=== PATIENT | male | born 1995 | race Caucasian/White ===

== ENCOUNTER 2018-03-20 15:45 | Emergency (ER) | payer OTHER ==
[~2018-03-20] VITALS: Ht 182.9 cm; Wt 92.0 kg
[2018-03-20 15:48] VITALS: BP 142/90; PULSE 104; RESP 16; TEMP 99.1; O2SAT 97
[2018-03-20] MEDS ORDERED: FLOV50AE INH (15:53)
[2018-03-20] MEDS ORDERED: OMEP20TA93 PO (16:50)
[2018-03-20] MEDS ORDERED: SODIUM CHLOR 0.9% 1000 ML INJ 1,000 ML IV SCH (17:06)
[2018-03-20] MEDS ORDERED: SODIUM CHLORIDE 0.9% FLUSH 10 ML FLUSH IV FLUSH PRN (17:15)
--- NOTE | 2018-03-20 17:48 | PD ---
HPI Chief Complaint: Abdominal Pain Time Seen by Provider: 17:00 Travel History International Travel<30 days: No Contact w/Intl Traveler<30days: No Traveled to known affect area: No History of Present Illness HPI Patient is a 22-year-old male presenting to emergency department for evaluation of abdominal pain. Patient states it started a month ago, he describes it as cramping. He reports every time he eats he has diarrhea. He has had for episodes since noon today. He also reports nausea but no vomiting. He denies any fever or chills, shortness of breath, chest pain, headache, weak, fatigue. Past medical history significant for asthma. Patient presents with his mother. He describes the pain as cramping, mild in nature, 3-4 out of 10. FOR[facility]LY [facility] Past Medical History Asthma: Yes Social History Alcohol Use: No Tobacco Use: No Substance Use: No Allergies-Medications (Allergen,Severity, Reaction): Coded Allergies: No Known Allergies (Unverified , 03/20/18) Reported Meds & Prescriptions Reported Meds & Active Scripts Active Bactrim DS (Sulfamethoxazole-Trimethoprim) 800-160 Mg Tab 1 Tab PO BID Reported Omeprazole 20 Mg Tab 20 Mg PO DAILY Flovent Diskus Inh (Fluticasone Powder Inh) 50 Mcg/Blist Aerp Review of Systems Except as stated in HPI: all other systems reviewed are Neg Gastrointestinal: Positive: Nausea, Diarrhea, Abdominal Pain, Changes in Bowel Habits Physical Exam Narrative GENERAL: Well-developed, well-nourished, well-appearing male. Presenting to emerge department no acute distress. SKIN: Warm and dry. HEAD: Atraumatic. Normocephalic. EYES: Pupils equal and round. No scleral icterus. No injection or drainage. ENT: No nasal bleeding or discharge. Mucous membranes pink and moist. NECK: Trachea midline. No JVD. CARDIOVASCULAR: Regular rate and rhythm. RESPIRATORY: No accessory muscle use. Clear to auscultation. Breath sounds equal bilaterally. GASTROINTESTINAL: Abdomen soft, mildly tender diffusely, nondistended. Hepatic and splenic margins not palpable. Positive bowel sounds, no rebound, no guarding MUSCULOSKELETAL: Extremities without clubbing, cyanosis, or edema. No obvious deformities. NEUROLOGICAL: Awake and alert. No obvious cranial nerve deficits. Motor grossly within normal limits. Five out of 5 muscle strength in the arms and legs. Normal speech. PSYCHIATRIC: Appropriate mood and affect; insight and judgment normal. Data Data Last Documented VS Vital Signs Date Time Temp Pulse Resp B/P (MAP) Pulse Ox O2 Delivery O2 Flow Rate FiO2 03/20/18 19:12 03/20/18 18:19 99 19 99 Room Air 03/20/18 15:48 99.1 Orders Orders Complete Blood Count With Diff (03/20/18 17:06) Comprehensive Metabolic Panel (03/20/18 17:06) Lipase (03/20/18 17:06) Urinalysis - C+S If Indicated (03/20/18 17:06) Ct Abd/Pel W Iv Contrast(Rout) (03/20/18 17:06) Iv Access Insert/Monitor (03/20/18 17:06) Ecg Monitoring (03/20/18 17:06) Oximetry (03/20/18 17:06) NPO (03/20/18 17:06) Sodium Chlor 0.9% 1000 Ml Inj (Ns 1000 M (03/20/18 17:06) Sodium Chloride 0.9% Flush (Ns Flush) (03/20/18 17:15) Iohexol 350 Inj (Omnipaque 350 Inj) (03/20/18 17:56) Ed Discharge Order (03/20/18 19:06) Labs Laboratory Tests Test 03/20/18 17:17 03/20/18 17:50 03/20/18 18:27 Blood Urea Nitrogen 9 MG/DL Creatinine 0.93 MG/DL Random Glucose 86 MG/DL Total Protein 7.7 GM/DL Albumin 4.2 GM/DL Calcium Level 9.0 MG/DL Alkaline Phosphatase 81 U/L Aspartate Amino Transf (AST/SGOT) 65 U/L Alanine Aminotransferase (ALT/SGPT) 101 U/L Total Bilirubin 0.7 MG/DL Sodium Level 141 MEQ/L Potassium Level 4.5 MEQ/L Chloride Level 106 MEQ/L Carbon Dioxide Level 24.6 MEQ/L Anion Gap 10 MEQ/L Estimat Glomerular Filtration Rate 103 ML/MIN Lipase 91 U/L White Blood Count 10.2 TH/MM3 Red Blood Count 5.61 MIL/MM3 Hemoglobin 16.6 GM/DL Hematocrit 48.0 % Mean Corpuscular Volume 85.6 FL Mean Corpuscular Hemoglobin 29.6 PG Mean Corpuscular Hemoglobin Concent 34.5 % Red Cell Distribution Width 13.4 % Platelet Count 185 TH/MM3 Mean Platelet Volume 10.9 FL Neutrophils (%) (Auto) 70.1 % Lymphocytes (%) (Auto) 19.1 % Monocytes (%) (Auto) 8.8 % Eosinophils (%) (Auto) 1.7 % Basophils (%) (Auto) 0.3 % Neutrophils # (Auto) 7.1 TH/MM3 Lymphocytes # (Auto) 1.9 TH/MM3 Monocytes # (Auto) 0.9 TH/MM3 Eosinophils # (Auto) 0.2 TH/MM3 Basophils # (Auto) 0.0 TH/MM3 CBC Comment DIFF FINAL Differential Comment Urine Color YELLOW Urine Turbidity CLEAR Urine pH 7.0 Urine Specific [place] 1.048 Urine Protein NEG mg/dL Urine Glucose (UA) NEG mg/dL Urine Ketones 20 mg/dL Urine Occult Blood NEG Urine Nitrite NEG Urine Bilirubin NEG Urine Urobilinogen LESS THAN 2 mg/dL Urine Leukocyte Esterase NEG Urine RBC 1 /hpf Urine WBC 1 /hpf Urine Mucus FEW /lpf Microscopic Urinalysis Comment CULT NOT INDICATED MDM Medical Decision Making Medical Screen Exam Complete: Yes Emergency Medical Condition: Yes Interpretation(s) Last Impressions Abdomen/Pelvis CT 03/20/18 1706 Signed Impressions: CONCLUSION: 1. There is a changed appearance to the region of the cecum, with some mild in duration of the fat circumferentially about the cecum. This suggests possible i nflammatory process. Even though the appendix has a normal appearance, the ruby cecal inflammatory change does include the junction of the appendix and cecum.. Mildly prominent lymph nodes medial to the right colon are unchanged in size w hen compared to 03/07/2018. Laboratory Tests Test 03/20/18 17:17 03/20/18 17:50 03/20/18 18:27 Blood Urea Nitrogen 9 MG/DL Creatinine 0.93 MG/DL Random Glucose 86 MG/DL Total Protein 7.7 GM/DL Albumin 4.2 GM/DL Calcium Level 9.0 MG/DL Alkaline Phosphatase 81 U/L Aspartate Amino Transf (AST/SGOT) 65 U/L Alanine Aminotransferase (ALT/SGPT) 101 U/L Total Bilirubin 0.7 MG/DL Sodium Level 141 MEQ/L Potassium Level 4.5 MEQ/L Chloride Level 106 MEQ/L Carbon Dioxide Level 24.6 MEQ/L Anion Gap 10 MEQ/L Estimat Glomerular Filtration Rate 103 ML/MIN Lipase 91 U/L White Blood Count 10.2 TH/MM3 Red Blood Count 5.61 MIL/MM3 Hemoglobin 16.6 GM/DL Hematocrit 48.0 % Mean Corpuscular Volume 85.6 FL Mean Corpuscular Hemoglobin 29.6 PG Mean Corpuscular Hemoglobin Concent 34.5 % Red Cell Distribution Width 13.4 % Platelet Count 185 TH/MM3 Mean Platelet Volume 10.9 FL Neutrophils (%) (Auto) 70.1 % Lymphocytes (%) (Auto) 19.1 % Monocytes (%) (Auto) 8.8 % Eosinophils (%) (Auto) 1.7 % Basophils (%) (Auto) 0.3 % Neutrophils # (Auto) 7.1 TH/MM3 Lymphocytes # (Auto) 1.9 TH/MM3 Monocytes # (Auto) 0.9 TH/MM3 Eosinophils # (Auto) 0.2 TH/MM3 Basophils # (Auto) 0.0 TH/MM3 CBC Comment DIFF FINAL Differential Comment Urine Color YELLOW Urine Turbidity CLEAR Urine pH 7.0 Urine Specific [place] 1.048 Urine Protein NEG mg/dL Urine Glucose (UA) NEG mg/dL Urine Ketones 20 mg/dL Urine Occult Blood NEG Urine Nitrite NEG Urine Bilirubin NEG Urine Urobilinogen LESS THAN 2 mg/dL Urine Leukocyte Esterase NEG Urine RBC 1 /hpf Urine WBC 1 /hpf Urine Mucus FEW /lpf Microscopic Urinalysis Comment CULT NOT INDICATED Vital Signs Date Time Temp Pulse Resp B/P (MAP) Pulse Ox O2 Delivery O2 Flow Rate FiO2 03/20/18 15:48 99.1 104 16 142/90 (107) 97 Differential Diagnosis IBS versus cholecystitis versus appendicitis versus diverticulitis versus other Narrative Course Patient is a 22-year-old male that presented to the emergency department for evaluation of abdominal pain, diarrhea, nausea. Patient is well-appearing, on exam patient's abdomen is diffusely mildly tender. Labs and CT scan ordered and pending. Mother is at bedside. CBC with no acute findings chemistry with mildly elevated AST and AST 65/101, urinalysis with elevated specific gravity otherwise unremarkable. CT scan abdomen and pelvis shows a changed appearance the region of the cecum with some mild induration of the fat circumferentially around the cecum. This suggest possible inflammatory process. Even though the appendix is a normal appearance the pericecal inflammatory changes not included junction of the appendix and cecum. Mildly prominent lymph nodes medial right colon are unchanged in size compared to 03/07/2018. This report was read by the radiologist. My attending physician discussed findings with general surgery. Please see her documentation. Patient was advised to follow-up with surgeon next week. He will be put on Bactrim DS. They were given strict return precautions. Patient was encouraged to avoid concentrated sweets, maintain adequate fluid intake, maintain a bland, easy to digest diet. Patient mother verbalized understanding of instructions. Patient stable for discharge. Diagnosis Primary Impression: Abdominal pain Qualified Codes: R10.9 - Unspecified abdominal pain Referrals: Zen Jimenez MD 1 week Additional Instructions: Follow-up with Dr. Jimenez in 1 week Complete full course of antibiotics as prescribed Return to emergency department immediately for any new worsening symptoms Med/Other Pt SpecificInfo: Prescription(s) given Scripts Sulfamethoxazole-Trimethoprim (Bactrim DS) 800-160 Mg Tab 1 TAB PO BID for Infection, #20 TAB 0 Refills Prov: Radha Flores 03/20/18 Disposition: 01 DISCHARGE HOME Condition: Stable Radha Flores Mar 20, 2018 17:48
[2018-03-20] MEDS ORDERED: IOHEXOL 350 MG/ML 10 ML VIAL (for RAD DIAG) IVCONTRAST ONE (17:56)
[2018-03-20 17:59] LABS: ALKALINE PHOSPHATASE 81 U/L (45-117); ALT (GPT) 101 U/L (12-78); TOTAL BILIRUBIN ADULT 0.7 MG/DL (0.2-1.0); TOTAL PROTEIN 7.7 GM/DL (6.4-8.2)
[2018-03-20 18:09] LABS: ALBUMIN 4.2 GM/DL (3.4-5.0); AST (GOT) 65 U/L (15-37); BICARBONATE 24.6 MEQ/L (21.0-32.0); BLOOD UREA NITROGEN 9 MG/DL (7-18); CHLORIDE 106 MEQ/L (98-107); CREATININE 0.93 MG/DL (0.60-1.30); GLOMERULAR FILTRATION RATE 103 ML/MIN (>89); GLUCOSE,RANDOM 86 MG/DL (74-106); SODIUM (NA) 141 MEQ/L (136-145)
[2018-03-20 18:19] VITALS: BP 133/70; PULSE 99; RESP 19; O2SAT 99
[2018-03-20 18:27] LABS: AUTOMATED NEUTROPHIL # 7.1 TH/MM3 (1.8-7.7); BASOPHIL % 0.3 % (0.0-2.0); EOSINOPHIL # 0.2 TH/MM3 (0-0.4); EOSINOPHIL % 1.7 % (0.0-4.0); HEMOGLOBIN 16.6 GM/DL (13.0-17.0); LYMPH % 19.1 % (9.0-44.0); LYMPHOCYTE # 1.9 TH/MM3 (1.0-4.8); MEAN CELL VOLUME 85.6 FL (80.0-100.0); MEAN CORPUSCULAR HEMOGLOBIN 29.6 PG (27.0-34.0); MEAN CORPUSCULAR HGB CONC 34.5 % (32.0-36.0); MEAN PLATELET VOLUME 10.9 FL (7.0-11.0); MONO % 8.8 % (0.0-8.0); MONOCYTE # 0.9 TH/MM3 (0-0.9); NEUT % 70.1 % (16.0-70.0); PLATELET COUNT 185 TH/MM3 (150-450); RED BLOOD COUNT 5.61 MIL/MM3 (4.50-5.90); RED CELL DISTRIBUTION WIDTH 13.4 % (11.6-17.2); WHITE BLOOD COUNT 10.2 TH/MM3 (4.0-11.0)
--- NOTE | 2018-03-20 18:28 | RADRPT ---
EXAM DATE: 03/20/2018 6:03 PM EDT AGE/SEX: 22 years / Male INDICATIONS: Intermittent abdominal pain X 3 weeks. CLINICAL DATA: This is the patient's initial encounter. Patient reports that signs and symptoms have been present for 3 weeks and indicates a pain score of 6/10. MEDICAL/SURGICAL HISTORY: Asthma. None. ORAL CONTRAST: No oral contrast ingested. RADIATION DOSE: 9.37 CTDI (mGy) COMPARISON: [facility], CT ABDOMEN AND PELVIS W AND W/O CONTRAST, 03/07/2018. . TECHNIQUE: Multiple contiguous axial images were obtained through the abdomen and pelvis following b olus infusion of 96 ml Omnipaque 350 (iohexol) nonionic water-soluble contrast as a single exam dos e. No oral contrast ingested. Using automated exposure control and adjustment of the mA and/or kV ac cording to patient size, the radiation dose was kept as low as reasonably achievable to obtain optima l diagnostic quality images. FINDINGS: Lower Lungs: The visualized lower lungs are clear. Liver: The liver has a homogeneous density without space-occupying lesion. There is no dilation of th e biliary tree. Spleen: Homogeneous density without enlargement. Pancreas: Unremarkable without mass or calcification. Kidneys: Normal in size and shape. No evidence of mass or hydronephrosis. Adrenal Glands: Unremarkable. Aorta: The aorta and proximal iliac vessels are grossly unremarkable without aneurysmal dilation. Bowel/Mesentery: There is some mild induration of the fat circumferentially about the cecum; this is a new finding when compared to prior. No free fluid. The appendix is identified inferior and lateral to the cecum, is normal in size, and is stable in appearance. There are several mesenteric nodes med ial to the right colon which measure up to 1.2 cm in size; these nodes are unchanged in size when com pared to prior CT. No dilated loops of small or large bowel. Abdominal Wall: Intact. Retroperitoneum: No evidence of adenopathy in the retrocrural, para-aortic, or deep pelvic regions. Bladder: Contours are smooth. Reproductive Organs: No abnormal masses or calcifications seen. Inguinal: The inguinal region is unremarkable without evidence of adenopathy. Bony Structures: Unremarkable. CONCLUSION: 1. There is a changed appearance to the region of the cecum, with some mild induration of the fat ci rcumferentially about the cecum. This suggests possible inflammatory process. Even though the appendi x has a normal appearance, the pericecal inflammatory change does include the junction of the appendi x and cecum.. Mildly prominent lymph nodes medial to the right colon are unchanged in size when liset red to 03/07/2018. Electronically signed by: Asif Dunne MD 03/20/2018 6:26 PM EDT
[2018-03-20 19:06] LABS: BILIRUBIN, URINE NEG (NEG); BLOOD, URINE NEG (NEG); GLUCOSE,URINE NEG (NEG); KETONE, URINE 20 mg/dL (NEG); MUCUS URINE FEW /lpf (OCC); NITRITE,URINE NEG (NEG); URINE COLOR YELLOW (YELLW/STRAW); URINE LEUKOCYTE ESTERASE NEG (NEG)
--- NOTE | 2018-03-20 19:06 | PD ---
Physical Exam Date Seen by Provider: Mar 20, 2018 Time Seen by Provider: 18:00 Narrative I, Dr. Lu, have reviewed the advance practice practitioner's documentation and am in agreement, met with the patient face to face, made the diagnosis, and the medical decision making was done by me. *My assessment and Findings: Patient seen and evaluated with PA, please see PA notes for further details. He is coming in with diffuse abdominal pains, nausea , intermittent diarrhea, sent in by urgent care. He was initially mildly tender to palpation diffusely, mostly in the epigastrium and right side, and lab work and CAT scan was ordered. Laboratory Tests Test 03/20/18 17:17 03/20/18 17:50 03/20/18 18:27 Aspartate Amino Transf (AST/SGOT) 65 U/L (15-37) Alanine Aminotransferase (ALT/SGPT) 101 U/L (12-78) Neutrophils (%) (Auto) 70.1 % (16.0-70.0) Monocytes (%) (Auto) 8.8 % (0.0-8.0) Last 24 hours Impressions Abdomen/Pelvis CT 03/20/18 1706 Signed Impressions: CONCLUSION: 1. There is a changed appearance to the region of the cecum, with some mild in duration of the fat circumferentially about the cecum. This suggests possible i nflammatory process. Even though the appendix has a normal appearance, the ruby cecal inflammatory change does include the junction of the appendix and cecum.. Mildly prominent lymph nodes medial to the right colon are unchanged in size w hen compared to 03/07/2018. Considering the finding, the case was briefly discussed with Dr. Jimenez who does not think that the symptoms and the findings are consistent with appendicitis. However, patient can be given antibiotics and followed up fairly closely, depending on how he is looking, can also be admitted as an observation. In the ER, patient has not had any vomiting episodes, appears to be doing well, vital signs are stable, and no significant leukocytosis although symptoms have been going on for several weeks, and I think that this is less likely to be an appendicitis. There is some signs of inflammation around the cecum and there could be some mesenteric adenitis in this area. Dr. Jimenez had suggested trying antibiotics. At this point, my plan would be to release the patient, return for worsening in symptoms. The plan was discussed with patient and mom and they state understanding. Data Data Last Documented VS Vital Signs Date Time Temp Pulse Resp B/P (MAP) Pulse Ox O2 Delivery O2 Flow Rate FiO2 03/20/18 18:19 99 19 133/70 (91) 99 Room Air 03/20/18 15:48 99.1 Orders Orders Complete Blood Count With Diff (03/20/18 17:06) Comprehensive Metabolic Panel (03/20/18 17:06) Lipase (03/20/18 17:06) Urinalysis - C+S If Indicated (03/20/18 17:06) Ct Abd/Pel W Iv Contrast(Rout) (03/20/18 17:06) Iv Access Insert/Monitor (03/20/18 17:06) Ecg Monitoring (03/20/18 17:06) Oximetry (03/20/18 17:06) NPO (03/20/18 17:06) Sodium Chlor 0.9% 1000 Ml Inj (Ns 1000 M (03/20/18 17:06) Sodium Chloride 0.9% Flush (Ns Flush) (03/20/18 17:15) Iohexol 350 Inj (Omnipaque 350 Inj) (03/20/18 17:56) Labs Laboratory Tests Test 03/20/18 17:17 03/20/18 17:50 03/20/18 18:27 Blood Urea Nitrogen 9 MG/DL Creatinine 0.93 MG/DL Random Glucose 86 MG/DL Total Protein 7.7 GM/DL Albumin 4.2 GM/DL Calcium Level 9.0 MG/DL Alkaline Phosphatase 81 U/L Aspartate Amino Transf (AST/SGOT) 65 U/L Alanine Aminotransferase (ALT/SGPT) 101 U/L Total Bilirubin 0.7 MG/DL Sodium Level 141 MEQ/L Potassium Level 4.5 MEQ/L Chloride Level 106 MEQ/L Carbon Dioxide Level 24.6 MEQ/L Anion Gap 10 MEQ/L Estimat Glomerular Filtration Rate 103 ML/MIN Lipase 91 U/L White Blood Count 10.2 TH/MM3 Red Blood Count 5.61 MIL/MM3 Hemoglobin 16.6 GM/DL Hematocrit 48.0 % Mean Corpuscular Volume 85.6 FL Mean Corpuscular Hemoglobin 29.6 PG Mean Corpuscular Hemoglobin Concent 34.5 % Red Cell Distribution Width 13.4 % Platelet Count 185 TH/MM3 Mean Platelet Volume 10.9 FL Neutrophils (%) (Auto) 70.1 % Lymphocytes (%) (Auto) 19.1 % Monocytes (%) (Auto) 8.8 % Eosinophils (%) (Auto) 1.7 % Basophils (%) (Auto) 0.3 % Neutrophils # (Auto) 7.1 TH/MM3 Lymphocytes # (Auto) 1.9 TH/MM3 Monocytes # (Auto) 0.9 TH/MM3 Eosinophils # (Auto) 0.2 TH/MM3 Basophils # (Auto) 0.0 TH/MM3 CBC Comment DIFF FINAL Differential Comment MDM Medical Record Reviewed: Yes Supervised Visit with NICOLASA: Yes Diagnosis Primary Impression: Abdominal pain Referrals: Zen Jimenez MD Disposition: 01 DISCHARGE HOME Condition: Stable Ponce Lu MD Mar 20, 2018 19:06
[2018-03-20] MEDS ORDERED: BACT800T5 PO (19:20)
== END 2018-03-20 19:13 | disposition home or self-care (01) ==
LOC: NEPE 15:45
DX: R10.9 Unspecified abdominal pain (principal); R11.0 Nausea; R19.7 Diarrhea, unspecified; J45.909 Unspecified asthma, uncomplicated
CPT/HCPCS: 74177; 80053; 81001; 83690; 85025; 96360; 99284; J7030; Q9967

== ENCOUNTER 2018-03-24 07:51 | Inpatient (IN) | payer OTHER ==
[~2018-03-24] VITALS: Ht 185.4 cm; Wt 94.6 kg
[~2018-03-24 07:51] MED LIST: BACT800T5 PO; FLOV50AE INH; OMEP20TA93 PO
[2018-03-24 07:57] VITALS: BP 142/78; PULSE 119; RESP 24; TEMP 97.9; O2SAT 99
[2018-03-24 08:15] VITALS: BP 134/89; PULSE 122; RESP 18; TEMP 98.5; O2SAT 98
[2018-03-24] MEDS ORDERED: SODIUM CHLOR 0.9% 1000 ML INJ 1,000 ML IV SCH (08:20)
[2018-03-24] MEDS ORDERED: PROCHLORPERAZINE INJ 10 MG/2 ML VIAL IV PUSH ONE (08:30)
[2018-03-24] MEDS ORDERED: diphenhydrAMINE HCL 50 MG/ML VIAL IV PUSH ONE (08:30)
[2018-03-24] MEDS ORDERED: SODIUM CHLOR 0.9% 1000 ML INJ 1,000 ML IV ONE ×3 (08:30→10:15)
[2018-03-24 08:41] LABS: AUTOMATED NEUTROPHIL # 11.9 TH/MM3 (1.8-7.7); BASOPHIL # 0.1 TH/MM3 (0-0.2); BASOPHIL % 0.3 % (0.0-2.0); EOSINOPHIL # 0.2 TH/MM3 (0-0.4); EOSINOPHIL % 1.5 % (0.0-4.0); HEMATOCRIT 57.1 % (39.0-51.0); HEMOGLOBIN 19.6 GM/DL (13.0-17.0); LYMPH % 12.6 % (9.0-44.0); MEAN CELL VOLUME 86.2 FL (80.0-100.0); MEAN CORPUSCULAR HEMOGLOBIN 29.6 PG (27.0-34.0); MEAN CORPUSCULAR HGB CONC 34.4 % (32.0-36.0); MEAN PLATELET VOLUME 10.8 FL (7.0-11.0); MONO % 11.5 % (0.0-8.0); MONOCYTE # 1.9 TH/MM3 (0-0.9); NEUT % 74.1 % (16.0-70.0); PLATELET COUNT 237 TH/MM3 (150-450); RED BLOOD COUNT 6.63 MIL/MM3 (4.50-5.90); RED CELL DISTRIBUTION WIDTH 13.6 % (11.6-17.2); WHITE BLOOD COUNT 16.1 TH/MM3 (4.0-11.0)
[2018-03-24 09:00] LABS: ALKALINE PHOSPHATASE 66 U/L (45-117); TOTAL BILIRUBIN ADULT 0.7 MG/DL (0.2-1.0); TOTAL PROTEIN 7.1 GM/DL (6.4-8.2)
[2018-03-24 09:18] LABS: ALBUMIN 3.7 GM/DL (3.4-5.0); ALT (GPT) 54 U/L (12-78); AST (GOT) 34 U/L (15-37); BICARBONATE 20.3 MEQ/L (21.0-32.0); BLOOD UREA NITROGEN 10 MG/DL (7-18); CALCIUM 8.7 MG/DL (8.5-10.1); CHLORIDE 102 MEQ/L (98-107); CREATININE 1.15 MG/DL (0.60-1.30); GLOMERULAR FILTRATION RATE 80 ML/MIN (>89); GLUCOSE,RANDOM 95 MG/DL (74-106); SODIUM (NA) 137 MEQ/L (136-145)
--- NOTE | 2018-03-24 09:28 | PD ---
HPI . Abdominal pain Chief Complaint: GI Complaint Time Seen by Provider: 08:18 Travel History International Travel<30 days: No Contact w/Intl Traveler<30days: No Traveled to known affect area: No History of Present Illness HPI Patient presents with a chief complaint of abdominal pain associated with very frequent diarrhea. He told me that it started a week ago. However, when I reviewed his records, he was seen here on 03/20 and stated at that time that the pain had been present for several weeks. Nonetheless, his symptoms have gotten progressively worse since his most recent visit here. He is complaining with diarrhea that occurs about every 15 minutes. It is watery. He has had some occasional vomiting but the vomiting is nothing compared to the diarrhea. His abdominal pain is in the lower abdomen and is crampy in nature. It is rated 10/ 10. It has been getting progressively worse. He has had no known sick contacts and has not been running a fever. He does admit to decreased urinary output. This patient was seen initially by his primary care provider on about 03/02. The primary care provider did blood work and a CT. The results of the studies were apparently negative. The primary care provider treated him with Cipro and Flagyl. He has finished both of those medications. His symptoms were worsening so he presented to an urgent care center. The urgent care center sent him here. That was on 03/20. He had blood work, urinalysis and a CT of the abdomen and pelvis. Pertinent findings were normal white blood count, normal electrolytes, mildly elevated AST/ALT and inflammatory changes around the cecum. A telephone consultation with surgery was obtained. The surgeon did not feel that the patient's presentation was compatible with appendicitis. He suggested discharged with antibiotics and follow-up with him. That follow- up is scheduled to take place this afternoon. However, his symptoms have become acutely worse over the last 12 hours. He subsequently presents back to us. REPLACED BY [facility] Past Medical History Asthma: Yes Diabetes: No Diminished Hearing: No Respiratory: Yes (ASTHMA) Influenza Vaccination: No Past Surgical History Ear Surgery: Yes (TUBES IN EARS INFANT) Social History Alcohol Use: No Tobacco Use: No Substance Use: No Allergies-Medications (Allergen,Severity, Reaction): Coded Allergies: No Known Allergies (Unverified , 03/24/18) Reported Meds & Prescriptions Reported Meds & Active Scripts Active Bactrim DS (Sulfamethoxazole-Trimethoprim) 800-160 Mg Tab 1 Tab PO BID Reported Flovent Diskus Inh (Fluticasone Powder Inh) 50 Mcg/Blist Aerp Review of Systems Except as stated in HPI: all other systems reviewed are Neg General / Constitutional: No: Fever, Chills HENT: Positive: Other (Dry mouth) Cardiovascular: No: Chest Pain or Discomfort Respiratory: No: Shortness of Breath Gastrointestinal: Positive: Nausea, Vomiting, Diarrhea, Abdominal Pain Genitourinary: Positive: Decreased Urinary Output Physical Exam Narrative Vital Signs Date Time Temp Pulse Resp B/P (MAP) Pulse Ox O2 Delivery O2 Flow Rate FiO2 03/24/18 08:15 98.5 122 18 134/89 (104) 98 Room Air 03/24/18 07:57 97.9 119 24 142/78 (99) 99 Room Air GENERAL: Healthy-appearing young man. SKIN: warm/dry. HEAD: Normocephalic. Atraumatic. EYES: Pupils equal and round. Extraocular movements are intact. ENT: Mucous membranes pink but dry. NECK: Supple. Full range of motion without pain.. CARDIOVASCULAR: Regular rate and rhythm. Sinus tachycardia. RESPIRATORY: No accessory muscle use. Clear to auscultation. Breath sounds equal bilaterally. GASTROINTESTINAL: Abdomen soft. Diffusely tender. Bowel sounds present. Nondistended. MUSCULOSKELETAL: No obvious deformities. Normal muscle tone. NEUROLOGICAL: Awake and alert. No obvious cranial nerve deficits. Motor grossly within normal limits. Normal speech. PSYCHIATRIC: Appropriate mood and affect; insight and judgment normal. Data Data Last Documented VS Vital Signs Date Time Temp Pulse Resp B/P (MAP) Pulse Ox O2 Delivery O2 Flow Rate FiO2 03/24/18 10:17 121 18 144/85 (104) 99 Room Air 03/24/18 08:15 98.5 Orders Orders Complete Blood Count With Diff (03/24/18 08:20) Comprehensive Metabolic Panel (03/24/18 08:20) Lipase (03/24/18 08:20) Urinalysis - C+S If Indicated (03/24/18 08:20) Iv Access Insert/Monitor (03/24/18 08:20) Sodium Chlor 0.9% 1000 Ml Inj (Ns 1000 M (03/24/18 08:20) Sodium Chloride 0.9% Flush (Ns Flush) (03/24/18 08:30) Diphenhydramine Inj (Benadryl Inj) (03/24/18 08:30) Prochlorperazine Inj (Compazine Inj) (03/24/18 08:30) Sodium Chlor 0.9% 1000 Ml Inj (Ns 1000 M (03/24/18 08:30) C Diff Toxin Pcr (03/24/18 08:32) Enteric Path (Stool) (03/24/18 08:52) Ct Abd/Pel W Iv Contrast(Rout) (03/24/18 10:06) Morphine Inj (Morphine Inj) (03/24/18 10:15) Sodium Chlor 0.9% 1000 Ml Inj (Ns 1000 M (03/24/18 10:15) Sodium Chlor 0.9% 1000 Ml Inj (Ns 1000 M (03/24/18 10:15) Vancomycin For Oral Use Only (Vancomycin (03/24/18 13:00) Isolation 08,20 (03/24/18 11:09) Equip, Isolation Cart (03/24/18 11:09) Ondansetron Odt (Zofran Odt) (03/24/18 11:15) Admit Order (Ed Use Only) (03/24/18 ) Vital Signs (Adult) Q4H (03/24/18 12:15) Diet Npo (03/24/18 Lunch) Activity Oob With Assistance (03/24/18 12:15) Notify Dr: Other (03/24/18 12:15) Labs Laboratory Tests Test 03/24/18 08:29 03/24/18 09:25 White Blood Count 16.1 TH/MM3 Red Blood Count 6.63 MIL/MM3 Hemoglobin 19.6 GM/DL Hematocrit 57.1 % Mean Corpuscular Volume 86.2 FL Mean Corpuscular Hemoglobin 29.6 PG Mean Corpuscular Hemoglobin Concent 34.4 % Red Cell Distribution Width 13.6 % Platelet Count 237 TH/MM3 Mean Platelet Volume 10.8 FL Neutrophils (%) (Auto) 74.1 % Lymphocytes (%) (Auto) 12.6 % Monocytes (%) (Auto) 11.5 % Eosinophils (%) (Auto) 1.5 % Basophils (%) (Auto) 0.3 % Neutrophils # (Auto) 11.9 TH/MM3 Lymphocytes # (Auto) 2.0 TH/MM3 Monocytes # (Auto) 1.9 TH/MM3 Eosinophils # (Auto) 0.2 TH/MM3 Basophils # (Auto) 0.1 TH/MM3 CBC Comment DIFF FINAL Differential Comment Blood Urea Nitrogen 10 MG/DL Creatinine 1.15 MG/DL Random Glucose 95 MG/DL Total Protein 7.1 GM/DL Albumin 3.7 GM/DL Calcium Level 8.7 MG/DL Alkaline Phosphatase 66 U/L Aspartate Amino Transf (AST/SGOT) 34 U/L Alanine Aminotransferase (ALT/SGPT) 54 U/L Total Bilirubin 0.7 MG/DL Sodium Level 137 MEQ/L Potassium Level 4.1 MEQ/L Chloride Level 102 MEQ/L Carbon Dioxide Level 20.3 MEQ/L Anion Gap 15 MEQ/L Estimat Glomerular Filtration Rate 80 ML/MIN Lipase 55 U/L Urine Color YELLOW Urine Turbidity HAZY Urine pH 5.0 Urine Specific [place] 1.023 Urine Protein 30 mg/dL Urine Glucose (UA) NEG mg/dL Urine Ketones 80 OR GREATER mg/dL Urine Occult Blood NEG Urine Nitrite NEG Urine Bilirubin NEG Urine Urobilinogen LESS THAN 2 mg/dL Urine Leukocyte Esterase NEG Urine RBC LESS THAN 1 /hpf Urine WBC 1 /hpf Urine Squamous Epithelial Cells 1 /hpf Urine Mucus FEW /lpf Microscopic Urinalysis Comment CULT NOT INDICATED Stool C. difficile Toxin (PCR) POSITIVE Stl C. difficile Toxin Epiderm 027 PRESUMPTIVE NEGATIVE MDM Medical Decision Making Medical Screen Exam Complete: Yes Emergency Medical Condition: Yes Medical Record Reviewed: Yes (see HPI for review of records) Differential Diagnosis Differential diagnosis of abdominal pain includes but is not limited to gastritis, pancreatitis, hepatitis, gastroenteritis, constipation, urinary retention, peptic ulcer disease, diverticulitis or appendicitis Narrative Course This is a young, relatively healthy man who has had abdominal pain and diarrhea for at least 3 weeks now. He has been treated initially with Cipro and Flagyl and now with Septra but his symptoms are getting worse rather than better. He has had 2 previous [address]s. The most recent CT on 03/20 showed inflammatory changes around the cecum. I will fluid resuscitate him. I am repeating his labs. Stool culture and C. difficile are pending. I am reluctant to do a third CT in this young man. However, if he has a leukocytosis, I feel that he needs one. CBC & BMP Diagram 03/24/18 08:29 Total Protein 7.1 #, Albumin 3.7, Calcium Level 8.7, Alkaline Phosphatase 66, Aspartate Amino Transf (AST/SGOT) 34, Alanine Aminotransferase (ALT/SGPT) 54, Total Bilirubin 0.[address] of his abdomen and pelvis. I will also give him an additional 2 L of fluid. He is hemoconcentrated. UA>>SG 1.023, + protein, + ketones C Diff + This patient has been previously treated with Flagyl in the recent past. Therefore, I have ordered oral vancomycin. Last Impressions Abdomen/Pelvis CT 03/24/18 1006 Signed Impressions: CONCLUSION: Colitis being most prominent at the ascending colon. When compared to the prior exam, this finding has progressed. This is a patient who has failed outpatient management. He is getting worse rather than better. He will be admitted to the hospital. Physician Communication Physician Communication Dr. Hay Diagnosis Primary Impression: Abdominal pain Qualified Codes: R10.30 - Lower abdominal pain, unspecified Additional Impressions: Diarrhea Qualified Codes: R19.7 - Diarrhea, unspecified Colitis due to Clostridium difficile Admitting Information Admitting Physician Requests: Admit Condition: Stable Mariana Foster MD Mar 24, 2018 09:28
[2018-03-24] MEDS ORDERED: MORPHINE SULFATE 4 MG/ML INJ IV PUSH ONE (10:15)
[2018-03-24 10:17] VITALS: BP 144/85; PULSE 121; RESP 18; O2SAT 99
[2018-03-24 10:21] LABS: BILIRUBIN, URINE NEG (NEG); BLOOD, URINE NEG (NEG); GLUCOSE,URINE NEG (NEG); KETONE, URINE 80 OR GREATER mg/dL (NEG); MUCUS URINE FEW /lpf (OCC); NITRITE,URINE NEG (NEG); SQUAMOUS EPITHELIAL CELL URINE 1 /hpf (0-5); URINE COLOR YELLOW (YELLW/STRAW); URINE LEUKOCYTE ESTERASE NEG (NEG)
[2018-03-24] MEDS ORDERED: IOHEXOL 350 MG/ML 10 ML VIAL (for RAD DIAG) IVCONTRAST ONE (10:33)
[2018-03-24] MEDS ORDERED: ONDANSETRON ODT 4 MG TAB PO ONE (11:15)
--- NOTE | 2018-03-24 11:31 | RADRPT ---
EXAM DATE: 03/24/2018 11:01 AM EDT AGE/SEX: 22 years / Male INDICATIONS: abdominal pain, nausea, vomiting, diarrhea 1 week CLINICAL DATA: This is the patient's initial encounter. Patient reports that signs and symptoms have been present for 1 week and indicates a pain score of 10/10. MEDICAL/SURGICAL HISTORY: . . ORAL CONTRAST: No oral contrast ingested. RADIATION DOSE: 10.45 CTDI (mGy) COMPARISON: [facility] [place] ABDOMEN & PELVIS W CONTRAST, 03/20/2018. . TECHNIQUE: Multiple contiguous axial images were obtained through the abdomen and pelvis following b olus infusion of 96ML ml Omnipaque 350 (iohexol) nonionic water-soluble contrast as a single exam d ose. No oral contrast ingested. Using automated exposure control and adjustment of the mA and/or kV according to patient size, radiation dose was kept as low as reasonably achievable to obtain optimal diagnostic quality images. DICOM format image data is available electronically for review and compar candido. FINDINGS: Lower Lungs: The visualized lower lungs are clear. Liver: The liver has a homogeneous density without space-occupying lesion. There is no dilation of th e biliary tree. Spleen: Homogeneous density without enlargement. Pancreas: Unremarkable without mass or calcification. Kidneys: Normal in size and shape. No evidence of mass or hydronephrosis. Adrenal Glands: Unremarkable. Aorta: The aorta and proximal iliac vessels are grossly unremarkable without aneurysmal dilation. Bowel/Mesentery: The colon appears thickened throughout. The ascending colon appears most probably a ffected. There is surrounding inflammatory change around the ascending colon. The appendix and termin al ileum appear normal. There are lymph nodes in the right lower quadrant mesentery. These appear mo re prominent on the current exam. Abdominal Wall: Intact. Retroperitoneum: No evidence of adenopathy in the retrocrural, para-aortic, or deep pelvic regions. Bladder: Contours are smooth. Reproductive Organs: No abnormal masses or calcifications seen. Inguinal: The inguinal region is unremarkable without evidence of adenopathy. Bony Structures: Unremarkable. CONCLUSION: Colitis being most prominent at the ascending colon. When compared to the prior exam, this finding iglesias s progressed. Electronically signed by: Manolo Flores MD 03/24/2018 11:29 AM EDT
[2018-03-24] MEDS: VANCOMYCIN 500 MG VIAL (FOR ORAL USE ONLY) PO SCH ×3 (11:50→22:18)
[2018-03-24] MEDS: SODIUM CHLOR 0.9% 1000 ML INJ 1,000 ML IV SCH ×3 (13:48→23:43)
--- NOTE | 2018-03-24 14:22 | HHI.HP ---
[facility] Service [facility] Primary Care Physician Toan Briggs M.D. Admission Diagnosis c diff colitis, dehydration Diagnoses: (1) Colitis due to Clostridium difficile Diagnosis: Principal Chief Complaint: abdominal pain Travel History International Travel<30 Days: No Contact w/Intl Traveler <30 Da: No Traveled to Known Affected Are: No History of Present Illness patient is a 22 y/o male with history of asthma who presented to ER with abdominal pain and diarrhea. he says that he's had abdominal pain and diarrhea for about three weeks. the pain was periumbilical and colicky in nature. he says that he was prescribed Cipro and Flagyl by his pcp three weeks ago but the symptoms didn't improve. he then was seen at urgent care and he was referred to ER. after the case was d/w general surgery , he was discharged home on bactrim. he says that the pain and diarrhea got worse to the extent that he decided to come back to ER. he denies any fever or chills but had some nausea and emesis last night.he doesn't report taking any antibiotics prior to three weeks ago when the symptoms started. he doesn't recall any similar symptoms in the past. he says that he hasn't been able to eat or drink as much over the past few days and he's probably lost some weight. Review of Systems Constitutional: COMPLAINS OF: Weight loss, DENIES: Fever, Chills, Night Sweats Eyes: DENIES: Blurred vision, Diplopia, Vision loss, Double Vision Ears, nose, mouth, throat: DENIES: Tinnitus, Vertigo, Throat pain, Epistaxis Respiratory: DENIES: Apneas, Cough, Snoring, Wheezing, Hemoptysis, Sputum production, Shortness of breath Cardiovascular: DENIES: Chest pain, Palpitations, Syncope, Dyspnea on Exertion , PND, Lower Extremity Edema, Orthopnea, Claudication Gastrointestinal: COMPLAINS OF: Abdominal pain, Diarrhea, Nausea, Vomiting, DENIES: Black stools, Bloody stools, Constipation, Difficulty Swallowing, Anorexia Genitourinary: DENIES: Urinary frequency, Urgency, Hematuria, Dysuria Musculoskeletal: DENIES: Joint pain, Muscle aches, Stiffness, Joint Swelling Integumentary: DENIES: Rash Neurologic: DENIES: Abnormal gait, Headache, Localized weakness, Paresthesias, Seizures, Speech Problems, Tremor, Poor Balance Psychiatric: DENIES: Anxiety, Confusion, Mood changes, Depression, Hallucinations, Agitation, Suicidal Ideation, Homicidal Ideation, Delusions Past Family Social History Past Medical History asthma. Past Surgical History era surgery. Reported Medications Flovent Diskus Inh (Fluticasone Powder Inh) 50 Mcg/Blist Aerp Allergies: Coded Allergies: No Known Allergies (Unverified , 03/24/18) Active Ordered Medications Inpatient Medications Diphenhydramine HCl (Benadryl Inj) 25 mg ONCE ONCE IV PUSH Last administered on 03/24/18at 08:35; Start 03/24/18 at 08:30; Stop 03/24/18 at 08:31; Status DC Morphine Sulfate (Morphine Inj) 2 mg Q4H PRN IV PUSH PAIN 1-10; Start 03/24/18 at 12:45 Ondansetron HCl (Zofran Odt) 4 mg ONCE ONCE PO Last administered on at 11:18; Start 03/24/18 at 11:15; Stop 03/24/18 at 11:16; Status DC Prochlorperazine Edisylate (Compazine Inj) 10 mg ONCE ONCE IV PUSH Last administered on 03/24/18at 08:35; Start 03/24/18 at 08:30; Stop 03/24/18 at 08:31 ; Status DC Sodium Chloride 1,000 ml @ 125 mls/hr Q8H IV Last administered on 03/24/18at 13 :48; Start 03/24/18 at 12:45 Sodium Chloride (NS Flush) 2 ml UNSCH PRN IV FLUSH FLUSH AFTER USING IV ACCESS ; Start 03/24/18 at 08:30 Vancomycin HCl (VANCOMYCIN for oral use only) 250 mg QID PO Last administered on 03/24/18at 11:50; Start 03/24/18 at 13:00 Family History not related to this admission. Social History doesn't smoke. drinks occasionally. Physical Exam Vital Signs Vital Signs Date Time Temp Pulse Resp B/P (MAP) Pulse Ox O2 Delivery O2 Flow Rate FiO2 6/21/18 10:17 121 18 144/85 (104) 99 Room Air 03/24/18 08:15 98.5 122 18 134/89 (104) 98 Room Air 03/24/18 07:57 97.9 119 24 142/78 (99) 99 Room Air Physical Exam GENERAL: This is a well-nourished, well-developed patient, in no apparent distress. SKIN: No rashes, ecchymoses or lesions. Cool and dry. HEAD: Atraumatic. Normocephalic. No temporal or scalp tenderness. EYES: Pupils equal round and reactive. Extraocular motions intact. No scleral icterus. No injection or drainage. ENT: Nose without bleeding, purulent drainage or septal hematoma. Throat without erythema, tonsillar hypertrophy or exudate. Uvula midline. Airway patent. NECK: Trachea midline. No JVD or lymphadenopathy. Supple, nontender, no meningeal signs. CARDIOVASCULAR: Regular rate and rhythm without murmurs, gallops, or rubs. RESPIRATORY: Clear to auscultation. Breath sounds equal bilaterally. No wheezes , rales, or rhonchi. GASTROINTESTINAL: Abdomen soft, non-tender, nondistended. No hepato-splenomegaly , or palpable masses. No guarding. MUSCULOSKELETAL: Extremities without clubbing, cyanosis, or edema. No joint tenderness, effusion, or edema noted. No calf tenderness. Negative Homans sign bilaterally. NEUROLOGICAL: Awake and alert. Cranial nerves II through XII intact. Motor and sensory grossly within normal limits. Five out of 5 muscle strength in all muscle groups. Normal speech. Laboratory Laboratory Tests Test 03/24/18 08:29 03/24/18 09:25 White Blood Count 16.1 Red Blood Count 6.63 Hemoglobin 19.6 Hematocrit 57.1 Mean Corpuscular Volume 86.2 Mean Corpuscular Hemoglobin 29.6 Mean Corpuscular Hemoglobin Concent 34.4 Red Cell Distribution Width 13.6 Platelet Count 237 Mean Platelet Volume 10.8 Neutrophils (%) (Auto) 74.1 Lymphocytes (%) (Auto) 12.6 Monocytes (%) (Auto) 11.5 Eosinophils (%) (Auto) 1.5 Basophils (%) (Auto) 0.3 Neutrophils # (Auto) 11.9 Lymphocytes # (Auto) 2.0 Monocytes # (Auto) 1.9 Eosinophils # (Auto) 0.2 Basophils # (Auto) 0.1 CBC Comment DIFF FINAL Differential Comment Blood Urea Nitrogen 10 Creatinine 1.15 Random Glucose 95 Total Protein 7.1 Albumin 3.7 Calcium Level 8.7 Alkaline Phosphatase 66 Aspartate Amino Transf (AST/SGOT) 34 Alanine Aminotransferase (ALT/SGPT) 54 Total Bilirubin 0.7 Sodium Level 137 Potassium Level 4.1 Chloride Level 102 Carbon Dioxide Level 20.3 Anion Gap 15 Estimat Glomerular Filtration Rate 80 Lipase 55 Urine Color YELLOW Urine Turbidity HAZY Urine pH 5.0 Urine Specific [place] 1.023 Urine Protein 30 Urine Glucose (UA) NEG Urine Ketones 80 OR GREATER Urine Occult Blood NEG Urine Nitrite NEG Urine Bilirubin NEG Urine Urobilinogen LESS THAN 2 Urine Leukocyte Esterase NEG Urine RBC LESS THAN 1 Urine WBC 1 Urine Squamous Epithelial Cells 1 Urine Mucus FEW Microscopic Urinalysis Comment CULT NOT INDICATED Stool C. difficile Toxin (PCR) POSITIVE Stl C. difficile Toxin Epiderm 027 PRESUMPTIVE NEGATIVE Date/Time Source Procedure Growth Status 03/24/18 08:52 Stool Stool - Final NO ENTERIC PATHOGENS DETECTED BY PCR... Complete Result Diagram: 03/24/18 0829 03/24/18 0829 Imaging Last Impressions Abdomen/Pelvis CT 03/24/18 1006 Signed Impressions: CONCLUSION: Colitis being most prominent at the ascending colon. When compared to the prior exam, this finding has progressed. Caprini VTE Risk Assessment Caprini VTE Risk Assessment: No/Low Risk (score <= 1) Caprini Risk Assessment Model Point Value = 1 Point Value = 2 Point Value = 3 Point Value = 5 Age 41-60 Minor surgery BMI > 25 kg/m2 Swollen legs Varicose veins or History of unexplained or recurrent spontaneous Oral contraceptives or hormone replacement Sepsis (< 1 month) Serious lung disease, including pneumonia (< 1 month) Abnormal pulmonary function Acute myocardial infarction Congestive heart failure (< 1 month) History of inflammatory bowel disease Medical patient at bed rest Age 61-74 Arthroscopic surgery Major open surgery (> 45 min) Laparoscopic surgery (> 45 min) Malignancy Confined to bed (> 72 hours) Immobilizing plaster cast Central venous access Age >= 75 History of VTE Family history of VTE Factor V Leiden Prothrombin [id number] Lupus anticoagulant Anticardiolipin antibodies Elevated serum homocysteine Heparin-induced thrombocytopenia Other congenital or acquired thrombophilia Stroke (< 1 month) Elective arthroplasty Hip, pelvis, or leg fracture Acute spinal cord injury (< 1 month) Prophylaxis Regimen Total Risk Factor Score Risk Level Prophylaxis Regimen 0-1 Low Early ambulation 2 Moderate Order ONE of the following: *Sequential Compression Device (SCD) *Heparin 5000 units SQ BID 3-4 Higher Order ONE of the following medications: *Heparin 5000 units SQ TID *Enoxaparin/Lovenox 40 mg SQ daily (WT < 150 kg, CrCl > 30 mL/min) *Enoxaparin/Lovenox 30 mg SQ daily (WT < 150 kg, CrCl > 10-29 mL/min) *Enoxaparin/Lovenox 30 mg SQ BID (WT < 150 kg, CrCl > 30 mL/min) AND/OR *Sequential Compression Device (SCD) 5 or more Highest Order ONE of the following medications: *Heparin 5000 units SQ TID (Preferred with Epidurals) *Enoxaparin/Lovenox 40 mg SQ daily (WT < 150 kg, CrCl > 30 mL/min) *Enoxaparin/Lovenox 30 mg SQ daily (WT < 150 kg, CrCl > 10-29 mL/min) *Enoxaparin/Lovenox 30 mg SQ BID (WT < 150 kg, CrCl > 30 mL/min) AND *Sequential Compression Device (SCD) Assessment and Plan Assessment and Plan A/P - C- diff colitis will start on oral Vancomycin- continue with supportive care including IV fluid, pain control and as needed antiemetics- consult GI. start on clear liquid diet and advance as tolerated. -asthma; resume home meds. Discussed Condition With ER physician and the patient. Physician Certification 2 Midnight Certification Type: Admission for Inpatient Services Order for Inpatient Services The services are ordered in accordance with Medicare regulations or non- Medicare payer requirements, as applicable. In the case of services not specified as inpatient-only, they are appropriately provided as inpatient services in accordance with the 2-midnight benchmark. Estimated LOS (days): 2 days is the estimated time the patient will need to remain in the hospital, assuming treatment plan goals are met and no additional complications. Post-Hospital Plan: Home John Hay MD Mar 24, 2018 14:22
[2018-03-24] MEDS ORDERED: ONDANSETRON ODT 4 MG TAB PO PRN (14:30)
[2018-03-24] MEDS ORDERED: ACETAMINOPHEN/HYDROcodone 325 MG/5 MG TAB PO PRN (14:30)
[2018-03-24] MEDS ORDERED: RESP: ALBUTEROL 1.25 MG/3 ML NEB (PRN) NEB (14:45)
[2018-03-24 15:00] VITALS: BP 134/72; PULSE 117; RESP 20; TEMP 98.1; O2SAT 98
[2018-03-24] MEDS: MORPHINE SULFATE 4 MG/ML INJ IV PUSH PRN ×2 (15:59→20:15)
--- NOTE | 2018-03-24 16:11 | PD.CONS ---
HPI History of Present Illness This is a 22 year old M with PMH significant for asthma who presented to the ER with complaints of abdominal pain and diarrhea that began three weeks ago. Pt initially went in to see his PCP who prescribed him Cipro and Flagyl on March 02 , he finished entire course of medication with no relief. He presented to the [place] ER on Wednesday with same complaints, CT revealed mild induration of the fat circumferentially about the cecum, suggesting possible inflammatory process , pt was discharged home with Bactrim. Pt returned to ER today with no improvement in his symptoms. Complaining of right lower quadrant abdominal pain , described as cramping, states pain is constant, does notice some short term relief after BM. States has been having BMs every 15 minutes with fecal urgency. Denies any blood in stool. Also reports nausea for the past couple weeks with one episode of emesis yesterday that he thinks was from increasing pain. Denies fever, chills, recent antibiotics except those listed above prescribed after symptoms began, recent hospitalization, sick contacts, recent travel, and history of C. Diff. Pt has never had EGD or colonoscopy. Denies family history of UC, Crohns, colon cancer. Reports 3 beers a week but none since symptoms began. Denies smoking and illicit drug use. (Sara Le) PFSH Past Medical History asthma. Past Surgical History ear surgery. (Sara Le) Coded Allergies: No Known Allergies (Unverified , 03/24/18) Family History Denies family history of UC, Crohns, colon cancer. Social History ETOH- 3 beers a week Denies smoking Denies illicit drug use (Sara Le) Review of Systems Gastrointestinal: COMPLAINS OF: Abdominal pain, Diarrhea, Nausea, Vomiting, DENIES: Black stools, Bloody stools, Constipation, Difficulty Swallowing, Anorexia, Odynophagia, Swelling of Abdomen, Heartburn, Hematemesis (Sara Le) GI Exam Vitals I&O Vital Signs Date Time Temp Pulse Resp B/P (MAP) Pulse Ox O2 Delivery O2 Flow Rate FiO2 03/24/18 15:06 03/24/18 10:17 121 18 144/85 (104) 99 Room Air 03/24/18 08:15 98.5 122 18 134/89 (104) 98 Room Air 03/24/18 07:57 97.9 119 24 142/78 (99) 99 Room Air I/O 03/23/18 03/23/18 03/23/18 03/24/18 03/24/18 03/24/18 07:00 15:00 23:00 07:00 15:00 23:00 Intake Total 4000 ml Balance 4000 ml Intake IV Total 4000 ml Imaging Last Impressions Abdomen/Pelvis CT 03/24/18 1006 Signed Impressions: CONCLUSION: Colitis being most prominent at the ascending colon. When compared to the prior exam, this finding has progressed. Laboratory Test 03/24/18 08:29 03/24/18 09:25 White Blood Count 16.1 TH/MM3 Red Blood Count 6.63 MIL/MM3 Hemoglobin 19.6 GM/DL Hematocrit 57.1 % Mean Corpuscular Volume 86.2 FL Mean Corpuscular Hemoglobin 29.6 PG Mean Corpuscular Hemoglobin Concent 34.4 % Red Cell Distribution Width 13.6 % Platelet Count 237 TH/MM3 Mean Platelet Volume 10.8 FL Neutrophils (%) (Auto) 74.1 % Lymphocytes (%) (Auto) 12.6 % Monocytes (%) (Auto) 11.5 % Eosinophils (%) (Auto) 1.5 % Basophils (%) (Auto) 0.3 % Neutrophils # (Auto) 11.9 TH/MM3 Lymphocytes # (Auto) 2.0 TH/MM3 Monocytes # (Auto) 1.9 TH/MM3 Eosinophils # (Auto) 0.2 TH/MM3 Basophils # (Auto) 0.1 TH/MM3 CBC Comment DIFF FINAL Differential Comment Blood Urea Nitrogen 10 MG/DL Creatinine 1.15 MG/DL Random Glucose 95 MG/DL Total Protein 7.1 GM/DL Albumin 3.7 GM/DL Calcium Level 8.7 MG/DL Alkaline Phosphatase 66 U/L Aspartate Amino Transf (AST/SGOT) 34 U/L Alanine Aminotransferase (ALT/SGPT) 54 U/L Total Bilirubin 0.7 MG/DL Sodium Level 137 MEQ/L Potassium Level 4.1 MEQ/L Chloride Level 102 MEQ/L Carbon Dioxide Level 20.3 MEQ/L Anion Gap 15 MEQ/L Estimat Glomerular Filtration Rate 80 ML/MIN Lipase 55 U/L Urine Color YELLOW Urine Turbidity HAZY Urine pH 5.0 Urine Specific [place] 1.023 Urine Protein 30 mg/dL Urine Glucose (UA) NEG mg/dL Urine Ketones 80 OR GREATER mg/dL Urine Occult Blood NEG Urine Nitrite NEG Urine Bilirubin NEG Urine Urobilinogen LESS THAN 2 mg/dL Urine Leukocyte Esterase NEG Urine RBC LESS THAN 1 /hpf Urine WBC 1 /hpf Urine Squamous Epithelial Cells 1 /hpf Urine Mucus FEW /lpf Microscopic Urinalysis Comment CULT NOT INDICATED Stool C. difficile Toxin (PCR) POSITIVE Stl C. difficile Toxin Epiderm 027 PRESUMPTIVE NEGATIVE Date/Time Source Procedure Growth Status 03/24/18 08:52 Stool Stool - Final NO ENTERIC PATHOGENS DETECTED BY PCR... Complete Physical Examination HEENT: Normocephalic; atraumatic CHEST: Even/unlabored CARDIAC: RRR ABDOMEN: Soft, nondistended, RLQ tenderness, bowel sounds active EXTREMITIES: No clubbing, cyanosis, or edema. SKIN: Normal; no rash; no jaundice. STRAIGHT LINE EDGER: Alert and oriented times three. (Sara Le) Assessment and Plan Plan Assessment: - Lower abdominal pain and diarrhea x 3 weeks- stools C. Diff positive. Pt initially seen by PCP 3 weeks ago, started on Cipro and Flagyl with no relief. Seen in ER on Wednesday, CT suggested inflammation to cecum, he was discharged with Bactrim. Returned to ER today with continued diarrhea and abdominal pain. States pain is in RLQ, constant, described as cramping, some short term improvement after BMs. Diarrhea every 15-20 mins with urgency. Denies blood in stool. Denies family history of UC, Crohns, colon cancer. Denies fever, chills, recent abx except those given after symptoms began, recent travel, sick contacts, recent hospitalizations. Has never had EGD or colonoscopy CT abdomen and pelvis W IV contrast --> Colitis being most prominent at the ascending colon. When compared to the prior exam, this finding has progressed. Plan: Oral Vanco QID Monitor for signs of worsening infection Pt would benefit from colonoscopy at some point, no risk factors for C. Diff, rule out underlying Crohns However, recommend treatment of infection first Further recommendations based on clinical course Pt has been seen and examined by myself and Dr. Buenrostro and this note is written on her behalf (Sara Le) Physician Comments seen, examined agree with above (Elaina Buenrostro MD) Sara Le Mar 24, 2018 16:11 Elaina Buenrostro MD Mar 24, 2018 17:55
[2018-03-24 20:00] VITALS: BP 119/65; PULSE 115; RESP 16; TEMP 99.2; O2SAT 98
[2018-03-24] MEDS: SODIUM CHLORIDE 0.9% FLUSH 10 ML FLUSH IV FLUSH PRN (20:16)
[2018-03-24] MEDS: FLUTICASONE PROPIONATE 44 MCG/ACT 10.6 GM INHALER INH SCH (21:00)
[2018-03-25 00:06] VITALS: BP 128/69; PULSE 117; RESP 16; TEMP 100.7; O2SAT 99
[2018-03-25 04:00] VITALS: BP 123/68; PULSE 83; RESP 16; TEMP 98.1; O2SAT 96
[2018-03-25] MEDS: SODIUM CHLORIDE 0.9% FLUSH 10 ML FLUSH IV FLUSH PRN (04:43)
[2018-03-25] MEDS: MORPHINE SULFATE 4 MG/ML INJ IV PUSH PRN ×2 (04:43→09:19)
[2018-03-25] MEDS: SODIUM CHLOR 0.9% 1000 ML INJ 1,000 ML IV SCH ×2 (07:08→21:41)
[2018-03-25 07:48] LABS: AUTOMATED NEUTROPHIL # 9.3 TH/MM3 (1.8-7.7); BASOPHIL % 0.2 % (0.0-2.0); EOSINOPHIL # 0.4 TH/MM3 (0-0.4); EOSINOPHIL % 2.8 % (0.0-4.0); HEMATOCRIT 42.1 % (39.0-51.0); HEMOGLOBIN 14.4 GM/DL (13.0-17.0); LYMPH % 13.6 % (9.0-44.0); LYMPHOCYTE # 1.8 TH/MM3 (1.0-4.8); MEAN CORPUSCULAR HEMOGLOBIN 29.8 PG (27.0-34.0); MEAN CORPUSCULAR HGB CONC 34.2 % (32.0-36.0); MEAN PLATELET VOLUME 11.6 FL (7.0-11.0); MONO % 13.1 % (0.0-8.0); MONOCYTE # 1.7 TH/MM3 (0-0.9); NEUT % 70.3 % (16.0-70.0); PLATELET COUNT 172 TH/MM3 (150-450); RED BLOOD COUNT 4.84 MIL/MM3 (4.50-5.90); RED CELL DISTRIBUTION WIDTH 13.4 % (11.6-17.2); WHITE BLOOD COUNT 13.2 TH/MM3 (4.0-11.0)
[2018-03-25 08:07] VITALS: BP 126/65; PULSE 88; RESP 16; TEMP 98.2; O2SAT 98
[2018-03-25 08:32] LABS: BICARBONATE 23.4 MEQ/L (21.0-32.0); CALCIUM 7.6 MG/DL (8.5-10.1); CREATININE 0.83 MG/DL (0.60-1.30)
[2018-03-25] MEDS: FLUTICASONE PROPIONATE 44 MCG/ACT 10.6 GM INHALER INH SCH ×2 (09:17→21:31)
[2018-03-25] MEDS: VANCOMYCIN 500 MG VIAL (FOR ORAL USE ONLY) PO SCH ×4 (09:17→21:32)
[2018-03-25] MEDS ORDERED: INFLUENZA VIRUS VACCINE (QUADRIVALENT) 0.5 ML SYR IM ONE (10:00)
--- NOTE | 2018-03-25 10:48 | HHI.PR ---
Subjective Remarks patient is a 22 y/o male with history of asthma who presented to ER with abdominal pain and diarrhea. he says that he's had abdominal pain and diarrhea for about three weeks. the pain was periumbilical and colicky in nature. he says that he was prescribed Cipro and Flagyl by his pcp three weeks ago but the symptoms didn't improve. he then was seen at urgent care and he was referred to ER. after the case was d/w general surgery , he was discharged home on bactrim. he says that the pain and diarrhea got worse to the extent that he decided to come back to ER. he denies any fever or chills but had some nausea and emesis last night.he doesn't report taking any antibiotics prior to three weeks ago when the symptoms started. he doesn't recall any similar symptoms in the past. he says that he hasn't been able to eat or drink as much over the past few days and he's probably lost some weight. 03-25 STILL HAVING SOME CRAMPING AND DIARRHEA DW RN AND PT AND FAMILY HOPEFULLY HOME IN NEXT 24 TO 48 HOURS ON PO VANCO FOR 4 WEEKS TREATMENT QID AM LABS Objective Vitals Vital Signs Date Time Temp Pulse Resp B/P (MAP) Pulse Ox O2 Delivery O2 Flow Rate FiO2 03/25/18 09:24 18 03/25/18 08:07 98.2 88 16 126/65 (85) 98 03/25/18 08:00 Room Air 03/25/18 04:42 Room Air 03/25/18 04:00 98.1 83 16 123/68 (86) 96 03/25/18 00:06 100.7 117 16 128/69 (88) 99 03/25/18 00:00 Room Air 03/24/18 20:00 99.2 115 16 119/65 (83) 98 03/24/18 15:06 03/24/18 15:00 98.1 117 20 134/72 (92) 98 I/O 03/24/18 03/24/18 03/24/18 03/25/18 03/25/18 03/25/18 07:00 15:00 23:00 07:00 15:00 23:00 Intake Total 4000 ml 1280 ml 1000 ml Balance 4000 ml 1280 ml 1000 ml Intake Oral 280 ml IV Total 4000 ml 1000 ml 1000 ml # Voids 3 # Bowel Movements 1 Result Diagram: 03/25/18 0558 03/25/18 0558 Other Results Laboratory Tests Test 03/24/18 08:29 03/24/18 09:25 03/25/18 05:58 White Blood Count 16.1 TH/MM3 13.2 TH/MM3 Red Blood Count 6.63 MIL/MM3 4.84 MIL/MM3 Hemoglobin 19.6 GM/DL 14.4 GM/DL Hematocrit 57.1 % 42.1 % Mean Corpuscular Volume 86.2 FL 87.0 FL Mean Corpuscular Hemoglobin 29.6 PG 29.8 PG Mean Corpuscular Hemoglobin Concent 34.4 % 34.2 % Red Cell Distribution Width 13.6 % 13.4 % Platelet Count 237 TH/MM3 172 TH/MM3 Mean Platelet Volume 10.8 FL 11.6 FL Neutrophils (%) (Auto) 74.1 % 70.3 % Lymphocytes (%) (Auto) 12.6 % 13.6 % Monocytes (%) (Auto) 11.5 % 13.1 % Eosinophils (%) (Auto) 1.5 % 2.8 % Basophils (%) (Auto) 0.3 % 0.2 % Neutrophils # (Auto) 11.9 TH/MM3 9.3 TH/MM3 Lymphocytes # (Auto) 2.0 TH/MM3 1.8 TH/MM3 Monocytes # (Auto) 1.9 TH/MM3 1.7 TH/MM3 Eosinophils # (Auto) 0.2 TH/MM3 0.4 TH/MM3 Basophils # (Auto) 0.1 TH/MM3 0.0 TH/MM3 CBC Comment DIFF FINAL DIFF FINAL Differential Comment Blood Urea Nitrogen 10 MG/DL 5 MG/DL Creatinine 1.15 MG/DL 0.83 MG/DL Random Glucose 95 MG/DL 79 MG/DL Total Protein 7.1 GM/DL Albumin 3.7 GM/DL Calcium Level 8.7 MG/DL 7.6 MG/DL Alkaline Phosphatase 66 U/L Aspartate Amino Transf (AST/SGOT) 34 U/L Alanine Aminotransferase (ALT/SGPT) 54 U/L Total Bilirubin 0.7 MG/DL Sodium Level 137 MEQ/L 142 MEQ/L Potassium Level 4.1 MEQ/L 3.7 MEQ/L Chloride Level 102 MEQ/L 109 MEQ/L Carbon Dioxide Level 20.3 MEQ/L 23.4 MEQ/L Anion Gap 15 MEQ/L 10 MEQ/L Estimat Glomerular Filtration Rate 80 ML/MIN 117 ML/MIN Lipase 55 U/L Urine Color YELLOW Urine Turbidity HAZY Urine pH 5.0 Urine Specific [place] 1.023 Urine Protein 30 mg/dL Urine Glucose (UA) NEG mg/dL Urine Ketones 80 OR GREATER mg/dL Urine Occult Blood NEG Urine Nitrite NEG Urine Bilirubin NEG Urine Urobilinogen LESS THAN 2 mg/dL Urine Leukocyte Esterase NEG Urine RBC LESS THAN 1 /hpf Urine WBC 1 /hpf Urine Squamous Epithelial Cells 1 /hpf Urine Mucus FEW /lpf Microscopic Urinalysis Comment CULT NOT INDICATED Stool C. difficile Toxin (PCR) POSITIVE Stl C. difficile Toxin Epiderm 027 PRESUMPTIVE NEGATIVE Imaging Last Impressions Abdomen/Pelvis CT 03/24/18 1006 Signed Impressions: CONCLUSION: Colitis being most prominent at the ascending colon. When compared to the prior exam, this finding has progressed. Objective Remarks GENERAL: Alert and oriented 3 talkative and cooperative appears stated age SKIN: Warm and dry. HEAD: Atraumatic. Normocephalic. EYES: Pupils equal and round. No scleral icterus. No injection or drainage. Extraocular muscles intact ENT: No nasal bleeding or discharge. Mucous membranes pink and moist. Tongue is midline NECK: Trachea midline. No JVD. Supple CARDIOVASCULAR: Regular rate and rhythm. S1-S2 no S3 or S4 RESPIRATORY: No accessory muscle use. Clear to auscultation. Breath sounds equal bilaterally. GASTROINTESTINAL: Abdomen soft, very mild tenderness- nondistended. Hepatic and splenic margins not palpable. MUSCULOSKELETAL: Extremities without clubbing, cyanosis, or edema. No obvious deformities. NEUROLOGICAL: Awake and alert. No obvious cranial nerve deficits. Motor grossly within normal limits. Five out of 5 muscle strength in the arms and legs. Normal speech. PSYCHIATRIC: Appropriate mood and affect; insight and judgment normal. Procedures NONE Medications and IVs Current Medications Sodium Chloride 1,000 ml @ 1,000 mls/hr Q1H IV Last administered on 03/24/18at 08:35; Start 03/24/18 at 08:20; Stop 03/24/18 at 09:19; Status DC Sodium Chloride (NS Flush) 2 ml UNSCH PRN IV FLUSH FLUSH AFTER USING IV ACCESS Last administered on 03/25/18at 04:43; Start 03/24/18 at 08:30 Diphenhydramine HCl (Benadryl Inj) 25 mg ONCE ONCE IV PUSH Last administered on 03/24/18at 08:35; Start 03/24/18 at 08:30; Stop 03/24/18 at 08:31; Status DC Prochlorperazine Edisylate (Compazine Inj) 10 mg ONCE ONCE IV PUSH Last administered on 03/24/18at 08:35; Start 03/24/18 at 08:30; Stop 03/24/18 at 08:31 ; Status DC Sodium Chloride 1,000 ml @ 999 mls/hr BOLUS ONCE IV Last administered on 03/24at 08:35; Start 03/24/18 at 08:30; Stop 03/24/18 at 09:38; Status DC Morphine Sulfate (Morphine Inj) 4 mg ONCE ONCE IV PUSH Last administered on at 10:20; Start 03/24/18 at 10:15; Stop 03/24/18 at 10:16; Status DC Sodium Chloride 1,000 ml @ 999 mls/hr BOLUS ONCE IV Last administered on 03/24at 10:19; Start 03/24/18 at 10:15; Stop 03/24/18 at 11:15; Status DC Sodium Chloride 1,000 ml @ 999 mls/hr BOLUS ONCE IV Last administered on 03/24at 11:19; Start 03/24/18 at 10:15; Stop 03/24/18 at 11:15; Status DC Vancomycin HCl (VANCOMYCIN for oral use only) 250 mg QID PO Last administered on 03/25/18at 09:17; Start 03/24/18 at 13:00 Ondansetron HCl (Zofran Odt) 4 mg ONCE ONCE PO Last administered on at 11:18; Start 03/24/18 at 11:15; Stop 03/24/18 at 11:16; Status DC Sodium Chloride 1,000 ml @ 125 mls/hr Q8H IV Last administered on 03/25/18at 07 :08; Start 03/24/18 at 12:45 Morphine Sulfate (Morphine Inj) 2 mg Q4H PRN IV PUSH PAIN 6-10 Last administered on 03/25/18at 09:19; Start 03/24/18 at 12:45 Ondansetron HCl (Zofran Odt) 4 mg Q6H PRN PO NAUSEA; Start 03/24/18 at 14:30 Fluticasone Propionate (Flovent Hfa 44 Mcg Inh) 1 puff BID INH Last administered on 03/25/18at 09:17; Start 03/24/18 at 21:00 Albuterol Sulfate (Albuterol Neb) 1.25 mg Q6HR NEB PRN NEB SHORTNESS OF BREATH ; Start 03/24/18 at 14:45 Acetaminophen/ Hydrocodone Bitart ([place] 5-325 Mg) 1 tab Q4H PRN PO PAIN 1-5 Last administered on 03/24/18at 23:43; Start 03/24/18 at 14:30 Influenza Virus Vaccine (Flu (Quadrivalent) Vaccine Inj) 0.5 ml ONCE ONCE IM ; Start 03/25/18 at 10:00; Stop 03/25/18 at 10:01; Status DC A/P Problem List: (1) Colitis due to Clostridium difficile ICD Code: A04.72 - Enterocolitis due to Clostridium difficile, not specified as recurrent Status: Acute Assessment and Plan - C- diff colitis will start on oral Vancomycin- continue with supportive care including IV fluid, pain control and as needed antiemetics- consult GI. start on clear liquid diet and advance as tolerated. -asthma; resume home meds. CONTINUE ORAL VANCO FOR 4 WEEKS WANTS TO SHOWER Discharge Planning PENDING IMPROVEMENT HOME IN NEXT 24 TO 48 HOURS IF OK WITH GI ON VANCO ORALLY Serge Lancaster DO Mar 25, 2018 10:48
[2018-03-25] MEDS ORDERED: NALOXONE HCL 0.4 MG/ML AMP IV PUSH PRN (11:00)
[2018-03-25] MEDS ORDERED: ACETAMINOPHEN 325 MG TAB PO PRN ×2 (11:00)
[2018-03-25] MEDS ORDERED: ONDANSETRON ODT 4 MG TAB PO PRN (11:00)
[2018-03-25] MEDS ORDERED: METOCLOPRAMIDE HCL 10 MG/2 ML VIAL IV PUSH PRN (11:00)
[2018-03-25] MEDS ORDERED: SODIUM CHLORIDE 0.9% FLUSH 10 ML FLUSH IV FLUSH PRN (11:00)
[2018-03-25] MEDS ORDERED: MORPHINE SULFATE 4 MG/ML INJ IV PUSH PRN ×2 (11:00)
[2018-03-25] MEDS: ENOXAPARIN SODIUM 40 MG/0.4 ML SYRINGE SQ SCH (11:55)
[2018-03-25 12:04] VITALS: BP 121/63; PULSE 90; RESP 16; TEMP 98.7; O2SAT 97
[2018-03-25] MEDS: oxyCODONE/ACETAMINOPHEN 5 MG/325 MG TAB PO PRN ×2 (13:04→21:41)
--- NOTE | 2018-03-25 15:27 | HHI.GIFU ---
Subjective Remarks Patient states still having loose watery stools approximately 4 times today in an 7 hour time span Family member with him Denies any acute bleeding does have some generalized lower abdominal pain Some mild low-grade fever Awake answering questions appropriately (Akanksha Bianchi) Objective Vitals I&O Vital Signs Date Time Temp Pulse Resp B/P (MAP) Pulse Ox O2 Delivery O2 Flow Rate FiO2 03/25/18 14:04 18 03/25/18 12:04 98.7 90 16 121/63 (82) 97 03/25/18 09:24 18 03/25/18 08:07 98.2 88 16 126/65 (85) 98 03/25/18 08:00 Room Air 03/25/18 04:42 Room Air 03/25/18 04:00 98.1 83 16 123/68 (86) 96 03/25/18 00:06 100.7 117 16 128/69 (88) 99 03/25/18 00:00 Room Air 03/24/18 20:00 99.2 115 16 119/65 (83) 98 I/O 03/24/18 03/24/18 03/24/18 03/25/18 03/25/18 03/25/18 07:00 15:00 23:00 07:00 15:00 23:00 Intake Total 4000 ml 1280 ml 1000 ml Balance 4000 ml 1280 ml 1000 ml Intake Oral 280 ml IV Total 4000 ml 1000 ml 1000 ml # Voids 3 # Bowel Movements 1 Laboratory Laboratory Tests Test 03/25/18 05:58 White Blood Count 13.2 Red Blood Count 4.84 Hemoglobin 14.4 Hematocrit 42.1 Mean Corpuscular Volume 87.0 Mean Corpuscular Hemoglobin 29.8 Mean Corpuscular Hemoglobin Concent 34.2 Red Cell Distribution Width 13.4 Platelet Count 172 Mean Platelet Volume 11.6 Neutrophils (%) (Auto) 70.3 Lymphocytes (%) (Auto) 13.6 Monocytes (%) (Auto) 13.1 Eosinophils (%) (Auto) 2.8 Basophils (%) (Auto) 0.2 Neutrophils # (Auto) 9.3 Lymphocytes # (Auto) 1.8 Monocytes # (Auto) 1.7 Eosinophils # (Auto) 0.4 Basophils # (Auto) 0.0 CBC Comment DIFF FINAL Differential Comment Blood Urea Nitrogen 5 Creatinine 0.83 Random Glucose 79 Calcium Level 7.6 Sodium Level 142 Potassium Level 3.7 Chloride Level 109 Carbon Dioxide Level 23.4 Anion Gap 10 Estimat Glomerular Filtration Rate 117 Date/Time Source Procedure Growth Status 03/24/18 08:52 Stool Stool - Final NO ENTERIC PATHOGENS DETECTED BY PCR... Complete Imaging Administered Medications Medications (Trade) Dose Ordered Sig/Kristin Route PRN Reason Start Time Stop Time Status Last Admin Dose Admin Sodium Chloride (NS Flush) 2 ml UNSCH PRN IV FLUSH FLUSH AFTER USING IV ACCESS 03/24/18 08:30 03/25/18 04:43 Vancomycin HCl (VANCOMYCIN for oral use only) 250 mg QID PO 03/24/18 13:00 03/25/18 13:03 Sodium Chloride 1,000 ml @ 125 mls/hr Q8H IV 03/24/18 12:45 03/25/18 07:08 Fluticasone Propionate (Flovent Hfa 44 Mcg Inh) 1 puff BID INH 03/24/18 21:00 03/25/18 09:17 Enoxaparin Sodium (Lovenox Inj) 40 mg Q24H SQ 03/25/18 11:00 03/25/18 11:55 Oxycodone/ Acetaminophen (Percocet 5-325 Mg) 1 tab Q6H PRN PO PAIN SCALE 3 TO 5 03/25/18 11:00 03/25/18 13:04 Physical Exam HEENT: normocephalic; atraumatic; no jaundice. Oral cavity clean NECK: Supple CHEST: Essentially clear without rhonchi or wheezing CARDIAC: Regular rate and rhythm ABDOMEN: Soft, nondistended, mild generalized discomfort no hepatosplenomegaly ; bowel sounds are present in all four quadrants. EXTREMITIES: No clubbing, cyanosis, or edema. SKIN: Normal; no rash; no jaundice. OPTICAL LATHE OPERATOR: No focal deficits; alert and oriented times three. (Akanksha Bianchi) Assessment and Plan Plan Assessment: - Lower abdominal pain and diarrhea x 3 weeks- stools C. Diff positive. Pt initially seen by PCP 3 weeks ago, started on Cipro and Flagyl with no relief. Seen in ER on Wednesday, CT suggested inflammation to cecum, he was discharged with Bactrim. Returned to ER today with continued diarrhea and abdominal pain. States pain is in RLQ, constant, described as cramping, some short term improvement after BMs. Diarrhea every 15-20 mins with urgency. Denies blood in stool. Denies family history of UC, Crohns, colon cancer. Denies fever, chills, recent abx except those given after symptoms began, recent travel, sick contacts, recent hospitalizations. Has never had EGD or colonoscopy CT abdomen and pelvis W IV contrast --> Colitis being most prominent at the ascending colon. When compared to the prior exam, this finding has progressed. 03/25/2018 patient is currently being monitored and treated for C. difficile colitis, seen with positive C. difficile still stool and CT of the abdomen, ascending colon. Patient is taking p.o. fluids well and states he is passing gas and able to move around in the room. He does have a family member present with him. We did discuss patient's treatment regimen for approximately 14 days and he is need to be out of work during that period of time. Patient is unaware of being around anyone sick. Was taking Cipro and Flagyl 3 weeks ago , seen previously in the emergency room and discharged on Bactrim. Patient denies any previous GI difficulties and no family history of colon cancer. Patient may need colonoscopy in the future, but this will be followed on an outpatient basis. Current labs show hemoglobin 14.4, gradual decrease in WBC count 13.2. Plan: Diet clear liquids as tolerated, bowel rest Oral vancomycin Pain meds per attending Reglan as needed for nausea or vomiting Antiemetics Pt has been seen and examined by myself and Dr. Buenrostro and this note is written on her behalf (Akanksha Bianchi) Physician Comments agree with above if not better consider adding dificid (Elaina Buenrostro MD) Akanksha Bianchi Mar 25, 2018 15:27 Elaina Buenrostro MD Mar 25, 2018 16:47
[2018-03-25 16:05] VITALS: BP 123/69; PULSE 94; RESP 16; TEMP 98.9; O2SAT 95
[2018-03-25] MEDS: oxyCODONE/ACETAMINOPHEN 10 MG/325 MG TAB PO PRN (17:47)
[2018-03-25 19:55] VITALS: BP 139/67; PULSE 106; RESP 16; TEMP 97.3; O2SAT 95
[2018-03-25] MEDS: SODIUM CHLORIDE 0.9% FLUSH 10 ML FLUSH IV FLUSH SCH (21:31)
[2018-03-26] VITALS: BP 122/70; PULSE 100; RESP 18; TEMP 98.4; O2SAT 97
[2018-03-26] MEDS: oxyCODONE/ACETAMINOPHEN 10 MG/325 MG TAB PO PRN ×4 (02:07→21:02)
[2018-03-26 04:00] VITALS: BP 107/58; PULSE 93; RESP 18; TEMP 98.2; O2SAT 95
[2018-03-26] MEDS: SODIUM CHLOR 0.9% 1000 ML INJ 1,000 ML IV SCH (04:45)
[2018-03-26] MEDS: VANCOMYCIN 500 MG VIAL (FOR ORAL USE ONLY) PO SCH ×4 (07:56→21:04)
[2018-03-26] MEDS: FLUTICASONE PROPIONATE 44 MCG/ACT 10.6 GM INHALER INH SCH ×2 (07:57→21:02)
[2018-03-26] MEDS: SODIUM CHLORIDE 0.9% FLUSH 10 ML FLUSH IV FLUSH SCH ×2 (07:57→21:04)
[2018-03-26 08:00] VITALS: BP 110/71; PULSE 97; RESP 22; TEMP 98.1; O2SAT 98
--- NOTE | 2018-03-26 08:41 | HHI.PR ---
Subjective Remarks Patient seen and examined this morning. Reports some intermittent abdominal pain. He feels much better than previous. He had 4 loose bowel movements last night and one this morning. He states they are beginning to become more formed. He is tolerating his diet. He does have some abdominal pain he states mostly from using the bathroom so much. He does report that this is the best that he is felt. Objective Vital Signs Date Time Temp Pulse Resp B/P (MAP) Pulse Ox O2 Delivery O2 Flow Rate FiO2 03/26/18 04:00 98.2 93 18 107/58 (74) 95 03/26/18 00:00 98.4 100 18 122/70 (87) 97 03/25/18 20:45 97 Room Air 03/25/18 19:55 97.3 106 16 139/67 (91) 95 03/25/18 18:47 18 03/25/18 16:05 98.9 94 16 123/69 (87) 95 03/25/18 14:04 18 03/25/18 12:04 98.7 90 16 121/63 (82) 97 03/25/18 09:24 18 I/O 03/25/18 03/25/18 03/25/18 03/26/18 03/26/18 03/26/18 07:00 15:00 23:00 07:00 15:00 23:00 Intake Total 1280 ml 1000 ml Balance 1280 ml 1000 ml Intake Oral 280 ml IV Total 1000 ml 1000 ml # Voids 3 2 # Bowel Movements 1 0 Result Diagram: 03/25/18 0558 03/25/18 0558 Imaging Last Impressions Abdomen/Pelvis CT 03/24/18 1006 Signed Impressions: CONCLUSION: Colitis being most prominent at the ascending colon. When compared to the prior exam, this finding has progressed. Objective Remarks GENERAL: Well-appearing, no acute distress SKIN: Warm and dry. HEAD: Normocephalic. EYES: No scleral icterus. No injection or drainage. NECK: Supple, trachea midline. No JVD or lymphadenopathy. CARDIOVASCULAR: Regular rate and rhythm without murmurs, gallops, or rubs. RESPIRATORY: Breath sounds equal bilaterally. No accessory muscle use. GASTROINTESTINAL: Abdomen soft, non-tender, nondistended. MUSCULOSKELETAL: No cyanosis, or edema. A/P Problem List: (1) Colitis due to Clostridium difficile ICD Code: A04.72 - Enterocolitis due to Clostridium difficile, not specified as recurrent Status: Acute Assessment and Plan In summary this is 22-year-old male with no significant medical history who presents to the ER with abdominal pain and diarrhea. Patient been seen in the ER and discharged twice for this. Patient was treated as an outpatient with Cipro and Flagyl. Stool studies positive for C. difficile. C. difficile colitis Continue p.o. vancomycin Has been seen and evaluated by GI: Recommends clear liquid diet as tolerated, bowel rest, if no improvement in symptoms consider adding Dificid Leukocytosis improving Discharge Planning Clinically improving, will continue to watch patient. If continues to look well tomorrow may consider DC home in afternoon. Jen Workman MD Mar 26, 2018 08:41
[2018-03-26 09:00] LABS: AUTOMATED NEUTROPHIL # 6.1 TH/MM3 (1.8-7.7); BASOPHIL % 0.3 % (0.0-2.0); EOSINOPHIL # 0.4 TH/MM3 (0-0.4); HEMATOCRIT 40.6 % (39.0-51.0); LYMPH % 18.8 % (9.0-44.0); LYMPHOCYTE # 1.7 TH/MM3 (1.0-4.8); MEAN CELL VOLUME 86.5 FL (80.0-100.0); MEAN CORPUSCULAR HEMOGLOBIN 29.8 PG (27.0-34.0); MEAN CORPUSCULAR HGB CONC 34.4 % (32.0-36.0); MEAN PLATELET VOLUME 11.1 FL (7.0-11.0); NEUT % 65.9 % (16.0-70.0); PLATELET COUNT 178 TH/MM3 (150-450); RED BLOOD COUNT 4.69 MIL/MM3 (4.50-5.90); RED CELL DISTRIBUTION WIDTH 13.4 % (11.6-17.2); WHITE BLOOD COUNT 9.2 TH/MM3 (4.0-11.0)
[2018-03-26 10:23] LABS: ALBUMIN 2.4 GM/DL (3.4-5.0); ALKALINE PHOSPHATASE 50 U/L (45-117); ALT (GPT) 54 U/L (12-78); AST (GOT) 34 U/L (15-37); BICARBONATE 26.8 MEQ/L (21.0-32.0); CALCIUM 7.8 MG/DL (8.5-10.1); CHLORIDE 108 MEQ/L (98-107); CREATININE 0.76 MG/DL (0.60-1.30); GLOMERULAR FILTRATION RATE 129 ML/MIN (>89); GLUCOSE,RANDOM 84 MG/DL (74-106); MAGNESIUM 1.8 MG/DL (1.5-2.5); PHOSPHORUS 3.2 MG/DL (2.5-4.9); SODIUM (NA) 143 MEQ/L (136-145); TOTAL BILIRUBIN ADULT 0.3 MG/DL (0.2-1.0); TOTAL PROTEIN 4.8 GM/DL (6.4-8.2)
[2018-03-26 10:24] LABS: BLOOD UREA NITROGEN 3 MG/DL (7-18)
[2018-03-26] MEDS: ENOXAPARIN SODIUM 40 MG/0.4 ML SYRINGE SQ SCH (10:32)
[2018-03-26 12:00] VITALS: BP 126/61; PULSE 90; RESP 20; TEMP 98.4; O2SAT 96
--- NOTE | 2018-03-26 12:21 | HHI.GIFU ---
Subjective Remarks Pt is resting in bed, stools are forming, not as frequent, still on the soft side. no other complaints (Amawi,Deborahawla NIPPLE THREADER) Objective Vitals I&O Vital Signs Date Time Temp Pulse Resp B/P (MAP) Pulse Ox O2 Delivery O2 Flow Rate FiO2 03/26/18 08:00 98.1 97 22 110/71 (84) 98 03/26/18 04:00 98.2 93 18 107/58 (74) 95 03/26/18 00:00 98.4 100 18 122/70 (87) 97 03/25/18 20:45 97 Room Air 03/25/18 19:55 97.3 106 16 139/67 (91) 95 03/25/18 18:47 18 03/25/18 16:05 98.9 94 16 123/69 (87) 95 03/25/18 14:04 18 I/O 03/25/18 03/25/18 03/25/18 03/26/18 03/26/18 03/26/18 07:00 15:00 23:00 07:00 15:00 23:00 Intake Total 1280 ml 1000 ml 1000 ml Balance 1280 ml 1000 ml 1000 ml Intake Oral 280 ml IV Total 1000 ml 1000 ml 1000 ml # Voids 3 2 # Bowel Movements 1 0 Laboratory Laboratory Tests Test 03/26/18 08:02 White Blood Count 9.2 Red Blood Count 4.69 Hemoglobin 14.0 Hematocrit 40.6 Mean Corpuscular Volume 86.5 Mean Corpuscular Hemoglobin 29.8 Mean Corpuscular Hemoglobin Concent 34.4 Red Cell Distribution Width 13.4 Platelet Count 178 Mean Platelet Volume 11.1 Neutrophils (%) (Auto) 65.9 Lymphocytes (%) (Auto) 18.8 Monocytes (%) (Auto) 11.0 Eosinophils (%) (Auto) 4.0 Basophils (%) (Auto) 0.3 Neutrophils # (Auto) 6.1 Lymphocytes # (Auto) 1.7 Monocytes # (Auto) 1.0 Eosinophils # (Auto) 0.4 Basophils # (Auto) 0.0 CBC Comment DIFF FINAL Differential Comment Blood Urea Nitrogen 3 Creatinine 0.76 Random Glucose 84 Total Protein 4.8 Albumin 2.4 Calcium Level 7.8 Phosphorus Level 3.2 Magnesium Level 1.8 Alkaline Phosphatase 50 Aspartate Amino Transf (AST/SGOT) 34 Alanine Aminotransferase (ALT/SGPT) 54 Total Bilirubin 0.3 Sodium Level 143 Potassium Level 4.1 Chloride Level 108 Carbon Dioxide Level 26.8 Anion Gap 8 Estimat Glomerular Filtration Rate 129 Date/Time Source Procedure Growth Status 03/24/18 08:52 Stool Stool - Final NO ENTERIC PATHOGENS DETECTED BY PCR... Complete Imaging Last Impressions Abdomen/Pelvis CT 03/24/18 1006 Signed Impressions: CONCLUSION: Colitis being most prominent at the ascending colon. When compared to the prior exam, this finding has progressed. Physical Exam HEENT: normocephalic; atraumatic; no jaundice. Oral cavity clean NECK: Supple CHEST: Essentially clear without rhonchi or wheezing CARDIAC: Regular rate and rhythm ABDOMEN: Soft, nondistended, mild generalized discomfort no hepatosplenomegaly ; bowel sounds are present in all four quadrants. EXTREMITIES: No clubbing, cyanosis, or edema. SKIN: Normal; no rash; no jaundice. 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 (Alejandra Dang) Assessment and Plan Plan Assessment: - Lower abdominal pain and diarrhea x 3 weeks- stools C. Diff positive. Pt initially seen by PCP 3 weeks ago, started on Cipro and Flagyl with no relief. Seen in ER on Wednesday, CT suggested inflammation to cecum, he was discharged with Bactrim. Returned to ER today with continued diarrhea and abdominal pain. States pain is in RLQ, constant, described as cramping, some short term improvement after BMs. Diarrhea every 15-20 mins with urgency. Denies blood in stool. Denies family history of UC, Crohns, colon cancer. Denies fever, chills, recent abx except those given after symptoms began, recent travel, sick contacts, recent hospitalizations. Has never had EGD or colonoscopy CT abdomen and pelvis W IV contrast --> Colitis being most prominent at the ascending colon. When compared to the prior exam, this finding has progressed. 03/25/2018 patient is currently being monitored and treated for C. difficile colitis, seen with positive C. difficile still stool and CT of the abdomen, ascending colon. Patient is taking p.o. fluids well and states he is passing gas and able to move around in the room. He does have a family member present with him. We did discuss patient's treatment regimen for approximately 14 days and he is need to be out of work during that period of time. Patient is unaware of being around anyone sick. Was taking Cipro and Flagyl 3 weeks ago , seen previously in the emergency room and discharged on Bactrim. Patient denies any previous GI difficulties and no family history of colon cancer. Patient may need colonoscopy in the future, but this will be followed on an outpatient basis. Current labs show hemoglobin 14.4, gradual decrease in WBC count 13.2. 03/26/18 Stools are forming, still on the soft side, not as frequent. WBC normalized Plan: Regular diet Cont. Oral vancomycin Pain meds per attending Amando to DC on vanco f/u with GI as an OP Antiemetics Pt has been seen and examined by myself and Dr. Buenrostro and this note is written on her behalf (Alejandra Dang) Physician Comments seen, examined agree with above (Elaina Buenrostro MD) Alejandra Dang Mar 26, 2018 12:21 Elaina Buenrostro MD Mar 26, 2018 20:32
[2018-03-26 16:00] VITALS: BP 122/65; PULSE 96; RESP 20; TEMP 98.2; O2SAT 95
[2018-03-26 20:00] VITALS: BP 140/77; PULSE 93; RESP 17; TEMP 98.4; O2SAT 99
[2018-03-27] VITALS: BP 160/73; PULSE 100; RESP 19; TEMP 98.3; O2SAT 99
[2018-03-27 04:00] VITALS: BP 118/75; PULSE 80; RESP 17; TEMP 98.3; O2SAT 99
[2018-03-27] MEDS: oxyCODONE/ACETAMINOPHEN 10 MG/325 MG TAB PO PRN ×2 (05:24→11:36)
--- NOTE | 2018-03-27 07:15 | HHI.PR ---
Subjective Remarks Patient seen and examined this morning. 2 loose BM yesterday, one this am. Are starting to become more formed. Continues to have abdominal pain that is well controlled with the pain medicine, when he goes without the medication he is very uncomfortable and cannot sleep. He has a doctor he can follow up with this week. Objective Vital Signs Date Time Temp Pulse Resp B/P (MAP) Pulse Ox O2 Delivery O2 Flow Rate FiO2 03/27/18 06:40 18 03/27/18 04:00 98.3 80 17 118/75 (89) 99 03/27/18 00:00 98.3 100 19 160/73 (102) 99 03/27/18 00:00 Room Air 03/26/18 21:05 Room Air 03/26/18 20:00 98.4 93 17 140/77 (98) 99 03/26/18 16:00 98.2 96 20 122/65 (84) 95 03/26/18 12:00 98.4 90 20 126/61 (82) 96 03/26/18 08:00 98.1 97 22 110/71 (84) 98 I/O 03/26/18 03/26/18 03/26/18 03/27/18 03/27/18 03/27/18 07:00 15:00 23:00 07:00 15:00 23:00 Intake Total 1000 ml 560 ml Balance 1000 ml 560 ml Intake Oral 560 ml IV Total 1000 ml # Voids 2 6 # Bowel Movements 0 2 Result Diagram: 03/26/18 0802 03/26/18 0802 Imaging Last Impressions Abdomen/Pelvis CT 03/24/18 1006 Signed Impressions: CONCLUSION: Colitis being most prominent at the ascending colon. When compared to the prior exam, this finding has progressed. Objective Remarks GENERAL: Well-appearing, no acute distress SKIN: Warm and dry. HEAD: Normocephalic. EYES: No scleral icterus. No injection or drainage. NECK: Supple, trachea midline. No JVD or lymphadenopathy. CARDIOVASCULAR: Regular rate and rhythm without murmurs, gallops, or rubs. RESPIRATORY: Breath sounds equal bilaterally. No accessory muscle use. GASTROINTESTINAL: Abdomen soft, non-tender, nondistended. MUSCULOSKELETAL: No cyanosis, or edema. A/P Problem List: (1) Colitis due to Clostridium difficile ICD Code: A04.72 - Enterocolitis due to Clostridium difficile, not specified as recurrent Status: Acute Assessment and Plan In summary this is 22-year-old male with no significant medical history who presents to the ER with abdominal pain and diarrhea. Patient been seen in the ER and discharged twice for this. Patient was treated as an outpatient with Cipro and Flagyl. Stool studies positive for C. difficile. C. difficile colitis Continue p.o. vancomycin Has been seen and evaluated by GI: cleared for d.c on vancomycin Leukocytosis improving Discharge Planning Cleared by GI D/C home on vanc x 10 days and pain medicine to get him through the weekend until he can see his PCP. Jen Workman MD Mar 27, 2018 07:15
[2018-03-27] MEDS ORDERED: VANC125C3 PO (07:19)
--- NOTE | 2018-03-27 07:19 | HHI.DCPOC ---
Discharge Care Plan Diagnosis: (1) Colitis due to Clostridium difficile Goals to Promote Your Health * To prevent worsening of your condition and complications * To maintain your health at the optimal level Directions to Meet Your Goals Take your medications as prescribed Follow your dietary instruction Follow activity as directed Keep your appointments as scheduled Take your immunizations and boosters as scheduled If your symptoms worsen call your PCP, if no PCP go to Urgent Care Center or Emergency Room Smoking is Dangerous to Your Health. Avoid second hand smoke Call the 24-hour hour crisis hotline for domestic abuse at Jen Workman MD Mar 27, 2018 07:19
[2018-03-27 08:00] VITALS: BP 117/79; PULSE 85; RESP 20; TEMP 97.8; O2SAT 97
[2018-03-27] MEDS: VANCOMYCIN 500 MG VIAL (FOR ORAL USE ONLY) PO SCH ×2 (08:08→13:16)
[2018-03-27] MEDS: SODIUM CHLORIDE 0.9% FLUSH 10 ML FLUSH IV FLUSH SCH (08:08)
[2018-03-27] MEDS: FLUTICASONE PROPIONATE 44 MCG/ACT 10.6 GM INHALER INH SCH (08:13)
[2018-03-27 08:36] LABS: AUTOMATED NEUTROPHIL # 4.6 TH/MM3 (1.8-7.7); BASOPHIL % 0.3 % (0.0-2.0); EOSINOPHIL # 0.4 TH/MM3 (0-0.4); EOSINOPHIL % 4.8 % (0.0-4.0); HEMATOCRIT 40.7 % (39.0-51.0); HEMOGLOBIN 14.2 GM/DL (13.0-17.0); LYMPH % 22.6 % (9.0-44.0); LYMPHOCYTE # 1.7 TH/MM3 (1.0-4.8); MEAN CELL VOLUME 86.3 FL (80.0-100.0); MEAN CORPUSCULAR HEMOGLOBIN 30.2 PG (27.0-34.0); MEAN CORPUSCULAR HGB CONC 34.9 % (32.0-36.0); MEAN PLATELET VOLUME 11.1 FL (7.0-11.0); MONO % 11.4 % (0.0-8.0); MONOCYTE # 0.9 TH/MM3 (0-0.9); NEUT % 60.9 % (16.0-70.0); PLATELET COUNT 187 TH/MM3 (150-450); RED BLOOD COUNT 4.71 MIL/MM3 (4.50-5.90); RED CELL DISTRIBUTION WIDTH 13.3 % (11.6-17.2); WHITE BLOOD COUNT 7.6 TH/MM3 (4.0-11.0)
[2018-03-27] MEDS ORDERED: OXYC1TAB36 PO (08:54)
--- NOTE | 2018-03-27 09:01 | HHI.DS ---
Discharge Summary Admission Date Mar 24, 2018 at 12:17 Discharge Date: Mar 27, 2018 Admitting Diagnosis c diff colitis, dehydration (1) Colitis due to Clostridium difficile ICD Codes: A04.72 - Enterocolitis due to Clostridium difficile, not specified as recurrent Status: Acute CBC/BMP: 03/27/18 0716 03/26/18 0802 Significant Findings Laboratory Tests Test 03/24/18 09:25 03/25/18 05:58 03/26/18 08:02 03/27/18 07:16 Urine Turbidity HAZY (CLEAR) Urine Protein 30 mg/dL (NEG-TRACE) Urine Ketones 80 OR GREATER mg/dL (NEG) Urine Mucus FEW /lpf (OCC) Stool C. difficile Toxin (PCR) POSITIVE (NEGATIVE) White Blood Count 13.2 TH/MM3 (4.0-11.0) Mean Platelet Volume 11.6 FL (7.0-11.0) 11.1 FL (7.0-11.0) 11.1 FL (7.0-11.0) Neutrophils (%) (Auto) 70.3 % (16.0-70.0) Monocytes (%) (Auto) 13.1 % (0.0-8.0) 11.0 % (0.0-8.0) 11.4 % (0.0-8.0) Neutrophils # (Auto) 9.3 TH/MM3 (1.8-7.7) Monocytes # (Auto) 1.7 TH/MM3 (0-0.9) 1.0 TH/MM3 (0-0.9) Blood Urea Nitrogen 5 MG/DL (7-18) 3 MG/DL (7-18) Calcium Level 7.6 MG/DL (8.5-10.1) 7.8 MG/DL (8.5-10.1) Chloride Level 109 MEQ/L (98-107) 108 MEQ/L (98-107) Total Protein 4.8 GM/DL (6.4-8.2) Albumin 2.4 GM/DL (3.4-5.0) Eosinophils (%) (Auto) 4.8 % (0.0-4.0) Imaging Last Impressions Abdomen/Pelvis CT 03/24/18 1006 Signed Impressions: CONCLUSION: Colitis being most prominent at the ascending colon. When compared to the prior exam, this finding has progressed. PE at Discharge GENERAL: Well-appearing, no acute distress SKIN: Warm and dry. HEAD: Normocephalic. EYES: No scleral icterus. No injection or drainage. NECK: Supple, trachea midline. No JVD or lymphadenopathy. CARDIOVASCULAR: Regular rate and rhythm without murmurs, gallops, or rubs. RESPIRATORY: Breath sounds equal bilaterally. No accessory muscle use. GASTROINTESTINAL: Abdomen soft, non-tender, nondistended. MUSCULOSKELETAL: No cyanosis, or edema. Hospital Course In summary this is 22-year-old male with no significant medical history who presents to the ER with abdominal pain and diarrhea. Patient been seen in the ER and discharged twice for this. Patient was treated as an outpatient with Cipro and Flagyl. Stool studies positive for C. difficile. Patient was placed on vancomycin and symptomatically improved. Stool quantity decreased and became more formed. By March 27 patient had reached maximum benefit from inpatient hospitalization. Pt Condition on Discharge: Stable Discharge Disposition: Discharge Home Discharge Instructions DIET: Follow Instructions for: Soft Diet Activities you can perform: Regular-No Restrictions Follow up Referrals: Gastroenterology with Elaina Buenrostro MD PCP Follow-up - 1 Week New Medications: Vancomycin (Vancomycin) 125 Mg Cap 125 MG PO QID for Infection for 10 Days, #40 CAP 0 Refills Oxycodone HCl/Acetaminophen (Oxycodone-Acetaminophen 10-325) 10 Mg-325 Mg Tablet 1 TAB PO Q6H PRN for PAIN SCALE 6 TO 10, #15 TAB Continued Medications: Fluticasone Powder Inh (Flovent Diskus Inh) 50 Mcg/Blist Aerp 1 INH DAILY for Asthma Management Discontinued Medications: Sulfamethoxazole-Trimethoprim (Bactrim DS) 800-160 Mg Tab 1 TAB PO BID for Infection, #20 TAB 0 Refills Jen Workman MD Mar 27, 2018 09:01
[2018-03-27 09:02] LABS: BICARBONATE 29.8 MEQ/L (21.0-32.0); CALCIUM 8.2 MG/DL (8.5-10.1); CREATININE 0.79 MG/DL (0.60-1.30)
[2018-03-27] MEDS: ENOXAPARIN SODIUM 40 MG/0.4 ML SYRINGE SQ SCH (10:46)
[2018-03-27 12:00] VITALS: BP 127/80; PULSE 84; RESP 20; TEMP 98; O2SAT 96
--- NOTE | 2018-03-27 13:07 | HHI.GIFU ---
Subjective Remarks Awake today and appears to be feeling somewhat better Still has an occasional lower abdominal discomfort Stools are becoming soft, and beginning to form Objective Vitals I&O Vital Signs Date Time Temp Pulse Resp B/P (MAP) Pulse Ox O2 Delivery O2 Flow Rate FiO2 03/27/18 12:00 98.0 84 20 127/80 (96) 96 03/27/18 08:00 97.8 85 20 117/79 (92) 97 03/27/18 06:40 18 03/27/18 04:00 98.3 80 17 118/75 (89) 99 03/27/18 00:00 98.3 100 19 160/73 (102) 99 03/27/18 00:00 Room Air 03/26/18 21:05 Room Air 03/26/18 20:00 98.4 93 17 140/77 (98) 99 03/26/18 16:00 98.2 96 20 122/65 (84) 95 I/O 03/26/18 03/26/18 03/26/18 03/27/18 03/27/18 03/27/18 07:00 15:00 23:00 07:00 15:00 23:00 Intake Total 1000 ml 560 ml Balance 1000 ml 560 ml Intake Oral 560 ml IV Total 1000 ml # Voids 2 6 # Bowel Movements 0 2 Laboratory Laboratory Tests Test 03/27/18 07:16 White Blood Count 7.6 Red Blood Count 4.71 Hemoglobin 14.2 Hematocrit 40.7 Mean Corpuscular Volume 86.3 Mean Corpuscular Hemoglobin 30.2 Mean Corpuscular Hemoglobin Concent 34.9 Red Cell Distribution Width 13.3 Platelet Count 187 Mean Platelet Volume 11.1 Neutrophils (%) (Auto) 60.9 Lymphocytes (%) (Auto) 22.6 Monocytes (%) (Auto) 11.4 Eosinophils (%) (Auto) 4.8 Basophils (%) (Auto) 0.3 Neutrophils # (Auto) 4.6 Lymphocytes # (Auto) 1.7 Monocytes # (Auto) 0.9 Eosinophils # (Auto) 0.4 Basophils # (Auto) 0.0 CBC Comment DIFF FINAL Differential Comment Blood Urea Nitrogen 3 Creatinine 0.79 Random Glucose 89 Calcium Level 8.2 Sodium Level 142 Potassium Level 3.3 Chloride Level 104 Carbon Dioxide Level 29.8 Anion Gap 8 Estimat Glomerular Filtration Rate 124 Date/Time Source Procedure Growth Status 03/24/18 08:52 Stool Stool - Final NO ENTERIC PATHOGENS DETECTED BY PCR... Complete Imaging Last Impressions Abdomen/Pelvis CT 03/24/18 1006 Signed Impressions: CONCLUSION: Colitis being most prominent at the ascending colon. When compared to the prior exam, this finding has progressed. Physical Exam HEENT: normocephalic; atraumatic; NECK: Supple CHEST: Even, unlabored CARDIAC: Regular rate and rhythm ABDOMEN: Soft, nondistended, mild generalized lower abdominal discomfort no hepatosplenomegaly; bowel sounds are present in all four quadrants. EXTREMITIES: No clubbing, cyanosis, or edema. SKIN: Normal; no rash; no jaundice. 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 Assessment and Plan Plan Assessment: - Lower abdominal pain and diarrhea x 3 weeks- stools C. Diff positive. Pt initially seen by PCP 3 weeks ago, started on Cipro and Flagyl with no relief. Seen in ER on Wednesday, CT suggested inflammation to cecum, he was discharged with Bactrim. Returned to ER today with continued diarrhea and abdominal pain. States pain is in RLQ, constant, described as cramping, some short term improvement after BMs. Diarrhea every 15-20 mins with urgency. Denies blood in stool. Denies family history of UC, Crohns, colon cancer. Denies fever, chills, recent abx except those given after symptoms began, recent travel, sick contacts, recent hospitalizations. Has never had EGD or colonoscopy CT abdomen and pelvis W IV contrast --> Colitis being most prominent at the ascending colon. When compared to the prior exam, this finding has progressed. 03/25/2018 patient is currently being monitored and treated for C. difficile colitis, seen with positive C. difficile still stool and CT of the abdomen, ascending colon. Patient is taking p.o. fluids well and states he is passing gas and able to move around in the room. He does have a family member present with him. We did discuss patient's treatment regimen for approximately 14 days and he is need to be out of work during that period of time. Patient is unaware of being around anyone sick. Was taking Cipro and Flagyl 3 weeks ago , seen previously in the emergency room and discharged on Bactrim. Patient denies any previous GI difficulties and no family history of colon cancer. Patient may need colonoscopy in the future, but this will be followed on an outpatient basis. Current labs show hemoglobin 14.4, gradual decrease in WBC count 13.2. 03/26/18 Stools are forming, still on the soft side, not as frequent. WBC normalized 03/27/2018 patient's stools continue to become more formed and less liquid diarrhea. Hemoglobin 14.2 no obvious bleeding. Patient should be able to transition home with completion of oral vancomycin and recheck stool for C. difficile. Can follow-up with GI as an outpatient. Patient will need note for return to work. Plan: Regular diet Pain meds per attending Vancomycin p.o. f/u with GI as an OP Antiemetics Supportive care Pt has been seen and examined by myself and Dr. Buenrostro and this note is written on her behalf Akanksha Bianchi Mar 27, 2018 13:07
== END 2018-03-27 13:17 | disposition home or self-care (01) | DRG 373 ==
LOC: NEPE 07:51 → NEDA 12:17 → N04A 15:06
PROVIDERS: ADMIT Family Medicine; ATTEND Family Medicine
DX: A04.72 Enterocolitis due to Clostridium difficile, not specified as recurrent (principal); E86.0 Dehydration; J45.909 Unspecified asthma, uncomplicated
CPT/HCPCS: 74177; 80048; 80053; 81001; 83690; 83735; 84100; 85025; 87493; 87506; 96361; 96374; 96375; J0780; J1200; J1650; J2270; J7030; Q9967